=== PATIENT | male | born 1940 ===

== ENCOUNTER 2023-05-12 11:24 | Inpatient (IN) | payer MEDICARE, SELFPAY ==
[2023-05-12] VITALS (20 sets, daily range): BP systolic 125–177; BP diastolic 67–94; PULSE 69–87; RESP 13–19; TEMP 36.1–36.3; O2SAT 98–100; BMI 20.7
--- NOTE | ~2023-05-12 | CT_ITS ---
EXAMINATION: CT brain wo con DATE: 05/12/2023 12:23 INDICATION: Weakness. TECHNIQUE: Computed tomography (CT) of the head was performed without intravenous contrast. The mA wa s adjusted according to patient size. Iterative reconstruction technique was employed. The dose-lengt h product was 756.67 mGy-cm. COMPARISON: None FINDINGS: There is a hyperdense subdural hematoma in the right parafalcine region with maximum thickn ess of 14 mm. There is a hyperdense dural hematoma in left parafalcine region with maximum thickness of 8 mm. There is a hyperdense subdural hematoma around the right temporal occipital region. No midli ne shift. There is no acute ischemic infarct or abnormal mass lesion. There are scattered areas of lo w attenuation in the cerebral white matter. There is mass effect on right lateral ventricle. The vent ricles are not enlarged. There is mild mucosal thickening in the ethmoid sinuses. There are likely ch anges of ocular lens replacement surgeries. There are small bilateral mastoid effusions. IMPRESSION: 1. Bilateral acute subdural hematomas, right worse than left. I called this result to Dr. Valderrama. 2. Mild nonspecific cerebral white matter disease, which likely represents chronic small vessel ische estuardo disease. Reviewed, dictated and finalized at location E. IMPRESSION: 1. Bilateral acute subdural hematomas, right worse than left. I called this res ult to Dr. Valderrama. 2. Mild nonspecific cerebral white matter disease, which likely represents expediter service order ha small vessel ischemic disease.
--- NOTE | ~2023-05-12 | XR_ITS ---
EXAMINATION: XR chest 1V portable DATE: 05/13/2023 14:14 INDICATION: Hyponatremia TECHNIQUE: frontal view of the chest was obtained. COMPARISON: None FINDINGS: The lungs are clear with no focal airspace opacities, pulmonary edema, pleural effusion or pneumothor ax. The cardiomediastinal silhouette is normal. IMPRESSION: 1. No acute cardiopulmonary disease. Reviewed, dictated and finalized at location A.
--- NOTE | 2023-05-12 11:36 | ECG_ITS ---
Measurements Intervals [place] Rate: 66 P: ME: 0 QRS: 3 QRSD: 142 T: 3 QT: 463 QTc: 486 Interpretive Statements ATRIAL FIBRILLATION RIGHT BUNDLE BRANCH BLOCK BASELINE ARTIFACT- I, II, III, AVR, AVL, AVF, V1-V6 ABNORMAL ECG NO PREVIOUS ECG AVAILABLE FOR COMPARISON Electronically Signed On 05-12-2023 12:57:04 CDT by Houston Langston D.O.
[2023-05-12 11:49] LABS: Basophils Percent Auto 0.4 % (0.2-1.2); Eosinophils Absolute Auto 0.1 K/mm3 (0-0.3); Eosinophils Percent Auto 0.9 % (0-4.4); Hematocrit 35.7 % (42.0-52.0); Hemoglobin 12.6 g/dL (14.0-18.0); Lymphocytes Absolute Auto 0.86 K/mm3 (0.9-3.2); Lymphocytes Percent Auto 8.6 % (18.3-44.2); Mean Corpuscular HGB Conc 35.3 g/dl (32-36); Mean Corpuscular Hemoglobin 32.9 pg (26-34); Mean Corpuscular Volume 93.2 fl (80-100); Mean Platelet Volume 10.8 fl (7.4-10.4); Monocytes Absolute Auto 0.8 K/mm3 (0.1-0.6); Monocytes Percent Auto 8.4 % (2.6-8.5); Neutrophils Absolute Auto 8.1 K/mm3 (1.3-6.7); Neutrophils Percent Auto 80.7 % (45.5-73.1); Nucleated Red Blood Cells Perc 0.2 % (0.0-0.2); Platelet Count Result 145 k/mm3 (150-375); Red Blood Count 3.83 M/mm3 (4.6-6.20); Red Cell Distribution Width 14.5 % (11.5-14.5)
[2023-05-12 12:05] LABS: INR 1.1; Prothrombin Time 14.2 Seconds (11.1-14.7)
[2023-05-12 12:06] LABS: Partial Thromboplastin Time 33.4 Seconds (22.3-36.8)
[2023-05-12 12:07] LABS: Alanine Aminotransferase 17 U/L (6-50); Albumin Level 3.3 g/dL (3.5-5.1); Alkaline Phosphatase 72 U/L (38-126); Anion Gap 2 mmol/L (4-12); Appearance Urine Clear (Clear); Aspartate Amino Transferase 22 U/L (17-59); Bilirubin,Total 1.3 mg/dL (0.2-1.3); Blood Urea Nitrogen 13 mg/dL (9-20); Calcium 8.3 mg/dL (8.4-10.2); Carbon Dioxide 29 mmol/L (22-30); Chloride 89 mmol/L (98-107); Color Urine Yellow (Yellow); Estimated CRCL calculation 79 ml/min; Estimated Glomerular Filt Rate > 60; Glucose 182 mg/dL (65-110); Potassium 3.9 mmol/L (3.4-5.0); Sodium 120 mmol/L (137-145)
[2023-05-12 12:08] LABS: Add Urine Microscopic? YES; Bacteria Urine None Seen /hpf; Bilirubin Urine Negative (Negative); Blood Urine Trace-Lysed (Negative); Glucose Urine UA Trace mg/dL (Negative); Ketones Urine 1+ mg/dL (Negative); Nitrate Urine Negative (Negative); Non Pathogenic Casts 0-2; Protein Urine 1+ mg/dL (Negative); RBC Urine 0-2 /hpf (0-2); Squamous Epithelial Cell Urine None Seen /hpf (Few); WBC Urine 0-5 /hpf (0-3); pH Urine 6.5 (5.0-9.0)
[2023-05-12 12:09] LABS: Leukocyte Esterase Ur Negative LEU/UL (Negative); Urobilinogen Urine 0.2 mg/dL (<2.0)
[2023-05-12] MEDS: SODIUM CHLORIDE 0.9% IV 1,000 ML 999 ML IV CONT (13:37)
--- NOTE | 2023-05-12 14:04 | ED.AMS ---
HPI - Altered Mental Status General Chief Complaint: Altered Mental Status Stated Complaint: AMS Time Seen by Provider: 05/12/23 11:36 Source: patient and EMS Mode of arrival: EMS Limitations: altered mental status History of Present Illness HPI narrative: 82-year-old with a history of AFib on amiodarone recent subdural hematoma, hyperlipidemia was brought by EMS from [facility] for complaints of altered mental status, slow to respond since this morning. As per the larger patient was transferred from [facility] to [facility]. Patient's daughter states that he was transferred initially from [facility] to [facility] for subdural bleed a wk ago . No recent trauma. Denies any fever or chills. Daughter also reports that he has been having diarrhea since Thursday from the time of discharge from [facility] complaint: altered mental status Severity: moderate Associated symptoms: denies other symptoms Related Data Home Medications Medication Instructions Recorded Confirmed acetaminophen 500 mg tablet 1,000 mg PO Q6H PRN Pain rated 5 05/08/23 05/08/23 or less amiodarone 200 mg tablet 200 mg PO DAILY 05/08/23 05/08/23 diltiazem HCl 30 mg tablet 30 mg PO QID 05/08/23 05/08/23 famotidine 40 mg tablet 40 mg PO DAILY 05/08/23 05/08/23 latanoprost 0.005 % eye drops 1 drp EACH EYE HS 05/08/23 05/08/23 levetiracetam 500 mg tablet 2,000 mg PO BID 05/08/23 05/08/23 metformin 500 mg tablet 1,000 mg PO BIDWM 05/08/23 05/08/23 sennosides 8.6 mg-docusate sodium 2 tab-cap PO BID 05/08/23 05/08/23 50 mg tablet simvastatin 20 mg tablet 20 mg PO HS 05/08/23 05/08/23 Allergies Allergy/AdvReac Type Severity Reaction Status Date / Time azithromycin Allergy Swelling Verified 05/08/23 15:59 of Lip/Tongue/Throat hydrocodone AdvReac Hallucinati Verified 05/08/23 15:59 ng Review of Systems Review of Systems: ROS unobtainable: Yes unobtainable due to medical condition PMFSH Past Medical History Medical History Atrial fibrillation, chronic Chronic anticoagulation HTN (hypertension) Mixed hyperlipidemia Moderate aortic stenosis by prior echocardiogram Ocular hypertension, bilateral Type 2 diabetes mellitus Surgical History Surgical History Cataract extraction status, unspecified eye 2017 History of hernia repair abdominal hernia repair 1979 History of inguinal hernia repair 1993 S/P tympanostomy tube placement 1996 and 2008 Family History Family History Mother Leukemia Father Malignant neoplasm of prostate Kidney failure Sibling Hypertension Sibling Malignant neoplasm of prostate Social History Social History Smoking status: Never smoker Second hand tobacco smoke exposure: No Alcohol intake: never Substance use type: does not use Do You Feel Safe in your Home?: Yes Lack of Transportation: No Lack of Food: Never True Current Housing: I Have Housing Concerned About Future Housing: No Difficulty Paying Gas/Electric Bills: No Difficulty Paying for Meds: No Currently Unemployed: No Education: Associate Degree Difficulty w/ Childcare or Family Care: No Spiritual care concerns: No Exam Narrative: GENERAL: Well-appearing, well-nourished, and in no acute distress. HEAD: Normocephalic, atraumatic. EYES: PERRLA and EOMI. ENT: Nares clear, no rhinorrhea or epistaxis. Mucous membranes moist. NECK: Supple. CHEST: Clear to auscultation. No respiratory distress. HEART: Regular rate and rhythm. No murmur heard. Normal peripheral pulses. ABDOMEN: Soft, nontender, nondistended, normal active bowel sounds. EXTREMITIES: Normal range of motion. No edema. SKIN: Warm, dry, no rash. NEURO: No focal deficits. Alert and oriented x3 PSYCH: Normal mood and affect.
[2023-05-12] MEDS: SODIUM CHLORIDE 0.9% IV 1,000 ML 125 ML IV CONT (15:29)
[2023-05-12 15:41] LABS: Toxigenic C. Diff NEGATIVE (NEGATIVE)
--- NOTE | 2023-05-12 16:11 | PM.IMHP ---
H&P: HPI History of Present Illness Date/Time: 05/12/23 16:10 Chief Complaint: ?Slow to respond.? Narrative: This is an 82-year-old male with atrial fibrillation, hypertension, hyperlipidemia, type 2 diabetes mellitus, and recent subdural hematoma complicated by seizures and resultant left hemiparesis for which he is currently undergoing rehab who presented to the emergency department for evaluation as he has been ?slow to respond this morning.? He fell out of bed on April 26 and was found to have a 2.6 cm parafalcine subdural hematoma for which he was transferred to [place]. Initially no surgical intervention was recommended and his anticoagulation was reversed. He developed increasing left-sided weakness and was administered mannitol and then hypertonic saline. EEG was consistent with multiple electrographic seizures and he was started on levetiracetam. He was transferred out of the ICU a week later and was discharged to [facility] on 05/08/2023. He has been participating in therapy however today he seemed to be slower to respond and he was sent to the ED for evaluation. He was afebrile on arrival to the ED with stable vital signs. Labs were significant for WBC count of 10.0, hemoglobin 12.6, platelet 145, sodium 120, chloride 89, creatinine 0.70, glucose 182. Brain CT was read as having bilateral acute subdural hematomas right worse than left. ED physician spoke with Neurosurgery at [facility] who reviewed this CAT scan and they report that the subdural hematomas are in fact improved when compared to imaging taken at their facility last week. They had no further recommendations and recommended admission to [facility] for further treatment and evaluation. He was started on normal saline for the hyponatremia and he is being admitted in this setting. At the time my evaluation he is alert and oriented but he does seem a bit slow to answer questions however answers them appropriately. He has no complaints and denies headache, diplopia, vertigo, increasing left-sided weakness, chest pain, shortness of breath, fever, cough, nausea, vomiting, and dysuria. He has had some loose stools however. Review of Systems Review of Systems: Twelve systems were reviewed and are negative except for as per HPI. [facility] Past Medical History Medical History (Updated 05/12/23 @ 16:30 by Parisa Nieto PA-C) Chronic anticoagulation Chronic atrial fibrillation Hypertension Mixed hyperlipidemia Moderate aortic stenosis by prior echocardiogram Ocular hypertension, bilateral Seizures Traumatic subdural hematoma (04/27/23) Treated nonsurgically and complicated by seizures and left hemiparesis. Type 2 diabetes mellitus Surgical History Surgical History (Updated 05/12/23 @ 16:25 by Parisa Nieto PA-C) History of bilateral tympanoplasty History of cataract extraction (2016) History of hernia repair (1978) History of inguinal hernia repair (1993) Family History Family History Mother Leukemia Father Malignant neoplasm of prostate Kidney failure Sibling Hypertension Sibling Malignant neoplasm of prostate Social History Social History (Updated 05/12/23 @ 21:38 by Parisa Nieto PA-C) Social History: Surrogate medical decision maker: Elisa Ortiz, daughter. Code status: Full code. Smoking status: Never smoker Second hand tobacco smoke exposure: No Alcohol intake: never Substance use: never Substance use type: does not use Do You Feel Safe in your Home?: Yes Lack of Transportation: No Lack of Food: Never True Current Housing: I Have Housing Concerned About Future Housing: No Difficulty Paying Gas/Electric Bills: No Difficulty Paying for Meds: No Currently Unemployed: No Education: High School Diploma/GED Difficulty w/ Childcare or Family Care: No Living arrangements: alone Additional living arrangements comments: Lives alone and was independent
[2023-05-12 17:11] LABS: Anion Gap 6 mmol/L (4-12); Blood Urea Nitrogen 12 mg/dL (9-20); Calcium 8.8 mg/dL (8.4-10.2); Carbon Dioxide 26 mmol/L (22-30); Chloride 93 mmol/L (98-107); Estimated CRCL calculation 70 ml/min; Estimated Glomerular Filt Rate > 60; Glucose 163 mg/dL (65-110); Sodium 125 mmol/L (137-145)
[2023-05-12] MEDS: dilTIAZem HCL 60 MG TABLET PO ×2 (17:33→20:59)
[2023-05-12 17:51] LABS: Thyroid Stimulating Hormone Reflex 0.796 uIU/mL (0.465-4.68)
--- NOTE | 2023-05-12 17:58 | ADMIMU ---
This patient, Micahel Neff, was admitted to IMU status, and placed in IMU Room 205-01. Patient/family oriented to hospital policies and general routines including ID bracelet, bed and alarms, visiting hours, pain management, procedures, bathroom and other care routines, personal items, smoking policy, room service/diet, and visiting hours. Valuables list has been completed. Information on how to activate the Rapid Response Team has been discussed. Patient/Family are encouraged to report perceived risks to care and to ask questions if they do not understand what they are told or what they should do.
[2023-05-12 20:33] LABS: Glucose Point of Care 234 mg/dl (65-105)
[2023-05-12 20:40] LABS: Sodium 127 mmol/L (137-145)
[2023-05-12 20:44] LABS: Ammonia < 9 umol/L (9-30)
[2023-05-12] MEDS: levETIRAcetam 500 MG TABLET 2000 MG PO (20:59)
[2023-05-12] MEDS: SIMVASTATIN 10 MG TABLET PO (21:00)
[2023-05-12] MEDS: INSULIN ASPART (*BKC) 100 UNITS/ML SUB-Q (21:07)
[2023-05-12 23:37] LABS: Creatinine Urine 12.6 mg/dL; Urea Random Urine 130 MG/DL
[2023-05-12 23:46] LABS: Sodium Urine Random 14 meq/L
[2023-05-12 23:48] LABS: Amphetamine Screen Urine Negative (Negative); Barbiturate Screen Urine Negative (Negative); Benzodiazepines Screen Urine Negative (Negative); Cannabinoid Screen Urine Negative (Negative); Cocaine Screen Urine Negative (Negative); Methadone Screen Urine Negative (Negative); Opiate Screen Urine Negative (Negative); Phencyclidine Screen Urine Negative (Negative)
[2023-05-13] VITALS (13 sets, daily range): BP systolic 108–143; BP diastolic 61–74; PULSE 61–90; RESP 16–20; TEMP 36.4–36.8; O2SAT 97–100
[2023-05-13 01:44] LABS: Sodium 128 mmol/L (137-145)
[2023-05-13 05:02] LABS: Basophils Percent Auto 0.4 % (0.2-1.2); Eosinophils Absolute Auto 0.1 K/mm3 (0-0.3); Eosinophils Percent Auto 0.8 % (0-4.4); Hematocrit 37.9 % (42.0-52.0); Hemoglobin 13.2 g/dL (14.0-18.0); Immature Granulocyte Absolute 0.08 K/mm3 (0.00-0.031); Immature Granulocyte Percent A 0.8 % (0-0.5); Lymphocytes Absolute Auto 1.08 K/mm3 (0.9-3.2); Mean Corpuscular HGB Conc 34.8 g/dl (32-36); Mean Corpuscular Volume 94.8 fl (80-100); Mean Platelet Volume 11.2 fl (7.4-10.4); Monocytes Absolute Auto 0.8 K/mm3 (0.1-0.6); Monocytes Percent Auto 8.2 % (2.6-8.5); Neutrophils Absolute Auto 7.7 K/mm3 (1.3-6.7); Neutrophils Percent Auto 78.8 % (45.5-73.1); Platelet Count Result 149 k/mm3 (150-375); Red Cell Distribution Width 14.6 % (11.5-14.5); White Blood Count 9.8 K/mm3 (4.5-10.0)
[2023-05-13 05:09] LABS: Anion Gap 7 mmol/L (4-12); Blood Urea Nitrogen 12 mg/dL (9-20); Calcium 8.7 mg/dL (8.4-10.2); Carbon Dioxide 25 mmol/L (22-30); Chloride 96 mmol/L (98-107); Estimated CRCL calculation 71 ml/min; Estimated Glomerular Filt Rate > 60; Glucose 179 mg/dL (65-110); Magnesium 2.1 mg/dL (1.6-2.3); Potassium 3.8 mmol/L (3.4-5.0); Sodium 128 mmol/L (137-145)
[2023-05-13 07:40] LABS: Glucose Point of Care 204 mg/dl (65-105)
[2023-05-13 08:12] LABS: Sodium 126 mmol/L (137-145)
[2023-05-13] MEDS: INSULIN ASPART (*BKC) 100 UNITS/ML SUB-Q ×3 (09:10→21:38)
[2023-05-13] MEDS: dilTIAZem HCL 60 MG TABLET PO ×4 (09:11→21:37)
[2023-05-13] MEDS: levETIRAcetam 500 MG TABLET 2000 MG PO ×2 (09:11→21:37)
[2023-05-13] MEDS: AMIODARONE HCL 200 MG TABLET PO (09:11)
[2023-05-13] MEDS: FAMOTIDINE 20 MG TABLET 40 MG PO (09:11)
[2023-05-13] MEDS: lisinopriL 5 MG TABLET PO (09:11)
--- NOTE | 2023-05-13 09:55 | P.PNIM_ITS ---
Progress Note: A&P Assessment and Plan (1) Hyponatremia: Code(s): E87.1 - Hypo-osmolality and hyponatremia Status: Acute Assessment and Plan: 05/13/2023: * Patient had a recent fall on April 26 and was found to have a 2.6 cm subdural hematoma which he was transferred to [place]. Initially there was no surgical intervention indicated in his anticoagulation was reversed. He developed increased left-sided weakness and was administered mannitol and hypertonic saline due to low sodium level. 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 * Patient has history of recent fall on April 26 and was found to have a 2.6 cm subdural hematoma which he was transferred to [place]. No surgical intervention was indicated at that time and his anticoagulation was reversed. He developed left-sided weakness it was and was administered mannitol and hypertonic saline. He also had an EEG which was consistent with seizure was started on Keppra. * CT of the brain without contrast this admission showed bilateral acute subdural hematoma, right worse than, age-related changes. These results were compared to his initial resulted [place] with the neurosurgery team at [facility] and the neurosurgery team states this can today shows improvement the previous scan. They did not warrant any further workup at this time. * Neurology consulted precautionary * Continue PT and OT * Continue neuro checks q.4 hour (3) Seizures: Code(s): R56.9 - Unspecified convulsions Status: Acute Assessment and Plan: 05/13/2023: * Continue Keppra * Continue seizure precautions * Neurology consulted (4) Chronic atrial fibrillation: Code(s): I48.20 - Chronic atrial fibrillation, unspecified Status: Acute Assessment and Plan: 05/13/2023: * Continue amiodarone and Cardizem * Not on anticoagulation currently (5) Type 2 diabetes mellitus: Qualifiers: Diabetes mellitus complication detail: with cataract Diabetes mellitus complication status: with ophthalmic complications Diabetes mellitus correction insulin use: without buttermaker continuous churn use Qualified Code(s): E11.36 - Type 2 diabetes mellitus with diabetic cataract Code(s): E11.9 - Type 2 diabetes mellitus without complications Status: Acute Assessment and Plan: 05/13/2023: * Blood sugars ranging 179-204 * Accu-Cheks AC and HS * Low-dose sliding scale ordered * Hypoglycemic in place * Metformin on hold * Will get hemoglobin A1c (6) Hypertension: Code(s): I10 - Essential (primary) hypertension Status: Acute Assessment and Plan: 05/13/2023: * Blood pressure ranging 125/67-177/94 * Continue lisinopril (7) Mixed hyperlipidemia: Code(s): E78.2 - Mixed hyperlipidemia Status: Acute Assessment and Plan: 05/13/2023: * Continue simvastatin Time Spent With Patient Time with patient: Greater than 35 minutes Subjective Date/time seen: 05/13/23 09:55 Int
--- NOTE | 2023-05-13 09:55 | PM.IMPN ---
Progress Note: A&P Assessment and Plan (1) Hyponatremia: Code(s): E87.1 - Hypo-osmolality and hyponatremia Status: Acute Assessment and Plan: 05/13/2023: Patient had a recent fall on April 26 and was found to have a 2.6 cm subdural hematoma which he was transferred to [place]. Initially there was no surgical intervention indicated in his anticoagulation was reversed. He developed increased left-sided weakness and was administered mannitol and hypertonic saline due to low sodium level. 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 Patient has history of recent fall on April 26 and was found to have a 2.6 cm subdural hematoma which he was transferred to [place]. No surgical intervention was indicated at that time and his anticoagulation was reversed. He developed left-sided weakness it was and was administered mannitol and hypertonic saline. He also had an EEG which was consistent with seizure was started on Keppra. CT of the brain without contrast this admission showed bilateral acute subdural hematoma, right worse than, age-related changes. These results were compared to his initial resulted [place] with the neurosurgery team at [facility] and the neurosurgery team states this can today shows improvement the previous scan. They did not warrant any further workup at this time. Neurology consulted precautionary Continue PT and OT Continue neuro checks q.4 hour (3) Seizures: Code(s): R56.9 - Unspecified convulsions Status: Acute Assessment and Plan: 05/13/2023: Continue Keppra Continue seizure precautions Neurology consulted (4) Chronic atrial fibrillation: Code(s): I48.20 - Chronic atrial fibrillation, unspecified Status: Acute Assessment and Plan: 05/13/2023: Continue amiodarone and Cardizem Not on anticoagulation currently (5) Type 2 diabetes mellitus: Qualifiers: Diabetes mellitus complication detail: with cataract Diabetes mellitus complication status: with ophthalmic complications Diabetes mellitus chcf insulin use: without ocean transportation intermediary use Qualified Code(s): E11.36 - Type 2 diabetes mellitus with diabetic cataract Code(s): E11.9 - Type 2 diabetes mellitus without complications Status: Acute Assessment and Plan: 05/13/2023: Blood sugars ranging 179-204 Accu-Cheks AC and HS Low-dose sliding scale ordered Hypoglycemic in place Metformin on hold Will get hemoglobin A1c (6) Hypertension: Code(s): I10 - Essential (primary) hypertension Status: Acute Assessment and Plan: 05/13/2023: Blood pressure ranging 125/67-177/94 Continue lisinopril (7) Mixed hyperlipidemia: Code(s): E78.2 - Mixed hyperlipidemia Status: Acute Assessment and Plan: 05/13/2023: Continue simvastatin Time Spent With Patient Time with patient: Greater than 35 minutes Subjective Date/time seen: 05/13/23 09:55 Interval history: This is an 82-year-old male who presented to hospital on 05/12/2023 evaluation as he has been slow to respond . Workup in the hospital included a head CT which showed bilateral acute subdural hematomas, right worse than left, age-related changes. Initial labs reveal a hemoglobin of 12.6, platelet count of 145, sodium 120, chloride 89, glucose ranging 182-198, calcium 8.3, liver enzymes are normal, albumin 3.3. UA was obtained w
[2023-05-13 11:38] LABS: Glucose Point of Care 227 mg/dl (65-105)
[2023-05-13 12:06] LABS: Sodium 128 mmol/L (137-145)
--- NOTE | 2023-05-13 12:20 | P.CONNP_ITS ---
Assessment and Plan Assessment and plan (1) Hyponatremia: Code(s): E87.1 - Hypo-osmolality and hyponatremia Status: Acute Assessment and Plan: * thought to be seconday to head trauma/subdural hematomas * reported treated with manniton and 3% saline at [facility] (unclear how low sodium dropped before this intervention) * evaluation to date noted: * repeat brain CT with subdural hematomas * urine electrolytes are prerenal * TSH okay * serum/urine osmolality pending * for completeness, check CXR, random cortisol, and SPEP/UPEP * agree with fluid restriction * consider salt tabs and lasix if sodium worsens * follow trend of repeat sodium levels (2) Chronic subdural hematoma: Code(s): I62.03 - Nontraumatic chronic subdural hemorrhage Status: Acute Assessment and Plan: * CT of the brain done in comparison to recent imaging at [facility] shows improvement in SDHs * follow neurological status closely * Neurology following as well (3) Seizures: Code(s): R56.9 - Unspecified convulsions Status: Acute Assessment and Plan: * as noted by testing at [facility] * on Keppra * Neurology following (4) Hypertension: Code(s): I10 - Essential (primary) hypertension Status: Chronic Assessment and Plan: * reasonable control at this time * follow trend of hemodynamics (5) Type 2 diabetes mellitus with hyperglycemia: Code(s): E11.65 - Type 2 diabetes mellitus with hyperglycemia Status: Chronic Assessment and Plan: * follow acc-cheks * glycemic control per hospitalists I will continue follow the patient with you while he remains hospitalized and make further recommendations as deemed necessary. Thank you for allowing me to participate in the care this patient. History of Present Illness Reason for Consult Consult date: 05/13/23 Reason for consult: hyponatremia Chief Complaint Chief complaint: hyponatremia,chronic subdural hematoma History of Present Illness Narrative: The patient is an 82-year-old male with a past medical history as outlined below who presented to [facility] Emergency room from [facility] for further evaluation of poor responsiveness. Earlier this month, the patient fell out of bed and subsequent testing at that time demonstrated 2.6 cm parafalcine subdural hematoma for which she was subsequently transferred to [facility] for further evaluation of this issue. He was seen by neuro surgery during his hospital stay and it was felt that no surgical intervention was required and it was just recommended that his anticoagulation be reversed. Unfortunately, during his hospital stay, he developed increasing left-sided weakness presumably due to concerns of progression of his subdural hematoma and he received mannitol as well as hypertonic saline as a treatment for this. EEG at that time was consistent with multiple electrocardiographic seizures and he was started on anti aldactone occasion for this issue. PT OT was consulted and as his medical condition stabilized, it was felt that he would benefit from inpatient rehabilitation. He was subsequently transferred to [facility] for this purpose on 05/08/2023. While he was at a NH, he was continuing to participate in PT and OT but on the day of admission, he seemed to be somewhat slower to respond to nursing staff and therapist and this was felt to be an acute change in his overall clinical condition. He was subsequently transferred to [facility] Emergency room for further ass
--- NOTE | 2023-05-13 12:20 | PM.CNNEP ---
Assessment and Plan Assessment and plan (1) Hyponatremia: Code(s): E87.1 - Hypo-osmolality and hyponatremia Status: Acute Assessment and Plan: thought to be seconday to head trauma/subdural hematomas reported treated with manniton and 3% saline at [facility] (unclear how low sodium dropped before this intervention) evaluation to date noted: repeat brain CT with subdural hematomas urine electrolytes are prerenal TSH okay serum/urine osmolality pending for completeness, check CXR, random cortisol, and SPEP/UPEP agree with fluid restriction consider salt tabs and lasix if sodium worsens follow trend of repeat sodium levels (2) Chronic subdural hematoma: Code(s): I62.03 - Nontraumatic chronic subdural hemorrhage Status: Acute Assessment and Plan: CT of the brain done in comparison to recent imaging at [facility] shows improvement in SDHs follow neurological status closely Neurology following as well (3) Seizures: Code(s): R56.9 - Unspecified convulsions Status: Acute Assessment and Plan: as noted by testing at [facility] on [facility] Neurology following (4) Hypertension: Code(s): I10 - Essential (primary) hypertension Status: Chronic Assessment and Plan: reasonable control at this time follow trend of hemodynamics (5) Type 2 diabetes mellitus with hyperglycemia: Code(s): E11.65 - Type 2 diabetes mellitus with hyperglycemia Status: Chronic Assessment and Plan: follow acc-cheks glycemic control per hospitalists I will continue follow the patient with you while he remains hospitalized and make further recommendations as deemed necessary. Thank you for allowing me to participate in the care this patient. History of Present Illness Reason for Consult Consult date: 05/13/23 Reason for consult: hyponatremia Chief Complaint Chief complaint: hyponatremia,chronic subdural hematoma History of Present Illness Narrative: The patient is an 82-year-old male with a past medical history as outlined below who presented to [facility] room from [facility] for further evaluation of poor responsiveness. Earlier this month, the patient fell out of bed and subsequent testing at that time demonstrated 2.6 cm parafalcine subdural hematoma for which she was subsequently transferred to [facility] for further evaluation of this issue. He was seen by neuro surgery during his hospital stay and it was felt that no surgical intervention was required and it was just recommended that his anticoagulation be reversed. Unfortunately, during his hospital stay, he developed increasing left-sided weakness presumably due to concerns of progression of his subdural hematoma and he received mannitol as well as hypertonic saline as a treatment for this. EEG at that time was consistent with multiple electrocardiographic seizures and he was started on anti aldactone occasion for this issue. PT OT was consulted and as his medical condition stabilized, it was felt that he would benefit from inpatient rehabilitation. He was subsequently transferred to [facility] for this purpose on 05/08/2023. While he was at a OR, he was continuing to participate in PT and OT but on the day of admission, he seemed to be somewhat slower to respond to nursing staff and therapist and this was felt to be an acute change in his overall clinical condition. He was subsequently transferred to [facility] Emergency room for further assessment of this change. Workup and evaluation in the emergency room demonstrated the patient be hemodynamically stable and routine blood tests was only significant for significant hyponatremia with a sodium level [address] scan of the brain demonstrated bilateral acute subdural hematomas with the right greater than left but the emergency room physician did consult Neurosurge
--- NOTE | 2023-05-13 12:20 | WPDNEURCNPN ---
Assessment and Plan Assessment and plan (1) Chronic atrial fibrillation: Code(s): I48.20 - Chronic atrial fibrillation, unspecified Status: Acute (2) Seizures: Code(s): R56.9 - Unspecified convulsions Status: Acute (3) Hyponatremia: Code(s): E87.1 - Hypo-osmolality and hyponatremia Status: Acute (4) Hypertension: Code(s): I10 - Essential (primary) hypertension Status: Acute (5) Altered mental status: Qualifiers: Altered mental status type: unspecified Qualified Code(s): R41.82 - Altered mental status, unspecified Code(s): R41.82 - Altered mental status, unspecified Status: Acute (6) Chronic subdural hematoma: Code(s): I62.03 - Nontraumatic chronic subdural hemorrhage Status: Acute (7) Type 2 diabetes mellitus with hyperglycemia: Code(s): E11.65 - Type 2 diabetes mellitus with hyperglycemia Status: Acute (8) Moderate aortic stenosis by prior echocardiogram: Code(s): I35.0 - Nonrheumatic aortic (valve) stenosis Status: Acute Plan 1. Atrial fibrillation 2. Hypertension 3. Diabetes mellitus 4. Recent diagnosis of subdural hematoma 5. Resultant left hemiparesis and seizure disorder 6. Neurosurgical consultation already obtained and no neurosurgical intervention planned 7. During therapy noted to have increasing weakness and transferred to [facility] and the CT scan read and telephone consultation obtained with Neurosurgery at [facility] will review the previous and present scans and suggested no worsening. Patient needs to be continued on physical therapy probably at this stage passive therapy will be more beneficial till his subdural hematomas settled down. Patient is receiving levetiracetam 2000mg twice a day in addition to all his other medications but no anticoagulant. 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 where he was transferred initially from [facility] for subdural bleed about a week ago with no history of recent trauma or any general febrile condition though he had some diarrhea from the time of discharge from [facility] his medications include amiodarone 200mg daily diltiazem 30mg q.i.d. famotidine 40mg daily levo trace a tamp 500mg each 4 tablets twice a day metformin 1000mg twice a day and simvastatin 20mg at night, reportedly allergic to azithromycin and hydrocodone, does have ongoing history of atrial fibrillation on chronic anticoagulation therapy in addition to history of underlying hypertension, hyperlipidemia, and aortic stenosis by echocardiogram previously, type 2 diabetes mellitus, and ocular hypertension as well has undergone cataract extraction in addition to tympanostomy tube placement in and 2008, never smoker never alcohol intake or and on initial examination in the emergency room he was in no acute distress and grossly nonfocal neurological examination with normal vital signs except blood pressure 149/94 repeat 160/91, CBC was normal with platelet count down that is 145 BMP abnormal sodium 120 and glucose of 182 routine lab negative, initial CT scan of the head documented bilateral acute subdural hematomas right worse than left, EKG with atrial fibrillation, continued all the most important medications, as per Dr. Raines rings note, on initial transfer to [facility] the subdural hematoma was documented as para falcine 2.6cm but no surgical intervention was recommended and his anticoagulation was reversed subsequently developed increasing left-sided weakness and he required mannitol and hypertonic saline at that time is EEG was consistent with multiple electrographic seizures when he was started on levetirac
[2023-05-13 15:57] LABS: Glucose Point of Care 173 mg/dl (65-105)
[2023-05-13 16:32] LABS: Sodium 127 mmol/L (137-145)
[2023-05-13 21:22] LABS: Glucose Point of Care 209 mg/dl (65-105)
[2023-05-13] MEDS: LATANOPROST 0.005% OP SOLN 2.5 ML BTL 1 DROP EACH EYE ×2 (21:35→21:50)
[2023-05-13] MEDS: SIMVASTATIN 10 MG TABLET PO (21:37)
--- NOTE | 2023-05-13 21:57 | PC.NURSE ---
RECIEVED PT FROM IMU PER BED
[2023-05-14 06:10] VITALS: BP 131/58; PULSE 73; RESP 16; TEMP 36.6; O2SAT 96
--- NOTE | 2023-05-14 07:24 | P.PNIM_ITS ---
Progress Note: A&P Assessment and Plan (1) Subdural hematoma without coma: Qualifiers: Encounter type: initial encounter Loss of consciousness presence/duration: without LOC Qualified Code(s): S06.5X0A - Traumatic subdural hemorrhage without loss of consciousness, initial encounter Code(s): S06.5XAA - Traumatic subdural hemorrhage with loss of consciousness status u nknown, initial encounter Status: Acute (2) Hyponatremia: Code(s): E87.1 - Hypo-osmolality and hyponatremia Status: Acute (3) Seizure: Code(s): R56.9 - Unspecified convulsions Status: Acute (4) Chronic atrial fibrillation: Code(s): I48.20 - Chronic atrial fibrillation, unspecified Status: Acute (5) Type 2 diabetes mellitus with hyperglycemia: Code(s): E11.65 - Type 2 diabetes mellitus with hyperglycemia Status: Chronic (6) HTN (hypertension): Qualifiers: Hypertension type: unspecified Qualified Code(s): I10 - Essential (primary) hypertension Code(s): I10 - Essential (primary) hypertension Status: Acute (7) Mixed hyperlipidemia: Code(s): E78.2 - Mixed hyperlipidemia Status: Acute Plan (1) Hyponatremia: ?Code(s): E87.1 - Hypo-osmolality and hyponatremia ?Status:?Acute ?Assessment and Plan: 05/13/2023: * Patient had a recent fall on April 26 and was found to have a 2.6 cm subdural hematoma which he was transferred to [facility].? Initially there was no surgical intervention indicated in his anticoagulation was reversed.? He developed increased left-sided weakness and was administered mannitol and hypertonic saline due to low sodium level. 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 p.o. (2) Chronic subdural hematoma: ?Code(s): I62.03 - Nontraumatic chronic subdural hemorrhage ?Status:?Acute ?Assessment and Plan: 05/13/2023: * Patient was noted to be slow to respond to questions in tasks at [facility]. * Patient has history of recent fall on April 26 and was found to have a 2.6 cm subdural hematoma which he was transferred to [facility].? No surgical intervention was indicated at that time and his anticoagulation was reversed.? He developed left-sided weakness it was and was administered mannitol and hypertonic saline.? He also had an EEG which was consistent with seizure was started on Keppra. * CT of the brain without contrast this admission showed bilateral acute subdural hematoma, right worse than, age-related changes.? These results were compared to his initial resulted [facility] with the neurosurgery team at [facility] and the neurosurgery team states this can today shows improvement the previous scan.? They did not warrant any further workup at this time. * Neurology consulted precautionary * Continue PT and OT * Continue neuro checks q.4 hour No new focal deficit * (3) Seizures: ?Code(s): R56.9 - Unspecified convulsions ?Status:?Acute ?Assessment and Plan: 05/13/2023: * Continue Keppra * Continue seizure precautions * Neurology consulted (4) Chronic atrial fibrillation: ?C
--- NOTE | 2023-05-14 07:24 | PM.IMPN ---
Progress Note: A&P Assessment and Plan (1) Subdural hematoma without coma: Qualifiers: Encounter type: initial encounter Loss of consciousness presence/duration: without LOC Qualified Code(s): S06.5X0A - Traumatic subdural hemorrhage without loss of consciousness, initial encounter Code(s): S06.5XAA - Traumatic subdural hemorrhage with loss of consciousness status unknown, initial encounter Status: Acute (2) Hyponatremia: Code(s): E87.1 - Hypo-osmolality and hyponatremia Status: Acute (3) Seizure: Code(s): R56.9 - Unspecified convulsions Status: Acute (4) Chronic atrial fibrillation: Code(s): I48.20 - Chronic atrial fibrillation, unspecified Status: Acute (5) Type 2 diabetes mellitus with hyperglycemia: Code(s): E11.65 - Type 2 diabetes mellitus with hyperglycemia Status: Chronic (6) HTN (hypertension): Qualifiers: Hypertension type: unspecified Qualified Code(s): I10 - Essential (primary) hypertension Code(s): I10 - Essential (primary) hypertension Status: Acute (7) Mixed hyperlipidemia: Code(s): E78.2 - Mixed hyperlipidemia Status: Acute Plan (1) Hyponatremia: ?Code(s): E87.1 - Hypo-osmolality and hyponatremia ?Status:?Acute ?Assessment and Plan: 05/13/2023: Patient had a recent fall on April 26 and was found to have a 2.6 cm subdural hematoma which he was transferred to [place].? Initially there was no surgical intervention indicated in his anticoagulation was reversed.? He developed increased left-sided weakness and was administered mannitol and hypertonic saline due to low sodium level. 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 p.o. (2) Chronic subdural hematoma: ?Code(s): I62.03 - Nontraumatic chronic subdural hemorrhage ?Status:?Acute ?Assessment and Plan: 05/13/2023: Patient was noted to be slow to respond to questions in tasks at [facility]. Patient has history of recent fall on April 26 and was found to have a 2.6 cm subdural hematoma which he was transferred to [place].? No surgical intervention was indicated at that time and his anticoagulation was reversed.? He developed left-sided weakness it was and was administered mannitol and hypertonic saline.? He also had an EEG which was consistent with seizure was started on Keppra. CT of the brain without contrast this admission showed bilateral acute subdural hematoma, right worse than, age-related changes.? These results were compared to his initial resulted [place] with the neurosurgery team at [facility] and the neurosurgery team states this can today shows improvement the previous scan.? They did not warrant any further workup at this time. Neurology consulted precautionary Continue PT and OT Continue neuro checks q.4 hour No new focal deficit (3) Seizures: ?Code(s): R56.9 - Unspecified convulsions ?Status:?Acute ?Assessment and Plan: 05/13/2023: Continue Keppra Continue seizure precautions Neurology consulted (4) Chronic atrial fibrillation: ?Code(s): I48.20 - Chronic atrial fibrillation, unspecified ?Status:?Acute ?Assessment and Plan: 05/13/2023: Continue amiodarone and Cardizem Not on anticoagulation currently (5) Type 2 diabetes mellitus: ?Qualifiers: ?Diabetes mellitus complication detail:?with cataract??Diabetes mellitus complication status:?with ophthalmic complications??Diabetes mellitus fci insulin use:?without long term acute care registered nurse use? Qualified Code(s):?E11.36 - Ty
[2023-05-14 07:54] LABS: Anion Gap 3 mmol/L (4-12); Blood Urea Nitrogen 12 mg/dL (9-20); Calcium 8.7 mg/dL (8.4-10.2); Carbon Dioxide 29 mmol/L (22-30); Chloride 96 mmol/L (98-107); Estimated CRCL calculation 61 ml/min; Estimated Glomerular Filt Rate > 60; Glucose 197 mg/dL (65-110); Potassium 3.8 mmol/L (3.4-5.0); Sodium 128 mmol/L (137-145)
[2023-05-14 08:02] LABS: Glucose Point of Care 213 mg/dl (65-105)
[2023-05-14] MEDS: dilTIAZem HCL 60 MG TABLET PO ×4 (08:44→20:12)
[2023-05-14] MEDS: FAMOTIDINE 20 MG TABLET 40 MG PO (08:44)
[2023-05-14 08:45] VITALS: PULSE 68
[2023-05-14] MEDS: AMIODARONE HCL 200 MG TABLET PO (08:45)
[2023-05-14] MEDS: levETIRAcetam 500 MG TABLET 2000 MG PO ×2 (08:46→20:12)
[2023-05-14] MEDS: lisinopriL 5 MG TABLET PO (08:46)
--- NOTE | 2023-05-14 09:35 | WPDNEUROPN ---
Progress Note: A&P Assessment and Plan (1) Altered mental status: Qualifiers: Altered mental status type: unspecified Qualified Code(s): R41.82 - Altered mental status, unspecified Code(s): R41.82 - Altered mental status, unspecified Status: Acute (2) Hyponatremia: Code(s): E87.1 - Hypo-osmolality and hyponatremia Status: Acute (3) Chronic subdural hematoma: Code(s): I62.03 - Nontraumatic chronic subdural hemorrhage Status: Acute (4) Atrial fibrillation, chronic: Code(s): I48.20 - Chronic atrial fibrillation, unspecified Status: Acute (5) Seizure: Code(s): R56.9 - Unspecified convulsions Status: Acute (6) Left leg weakness: Code(s): R29.898 - Other symptoms and signs involving the musculoskeletal system Status: Acute Plan Mr. Neff is an year old male with a history of atrial fibrillation, HTN, HLD, DM, and recent SDH complicated by seizure and L hemiparesis currently admitted for altered mental status. He was ultimately found to have hyponatremia of 120, which may have been the cause of his altered mental status. Most recent sodium is 128. CTH per Neurosurgery at [facility] appears to be improved from the prior scans at [facility] for SDH. He has not had any breakthrough seizures since that admission from what I can see. Timing of resumption of anticoagulation for atrial fibrillation will have to be discussed with Neurosurgery. 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 Subjective Date/time seen: 05/14/23 09:35 Interval history: Mr. Neff is an year old male with a history of atrial fibrillation, HTN, HLD, DM, and recent SDH complicated by seizure and L hemiparesis currently admitted for altered mental status. Patient initially presented on 04/26 after he fell out of bed and was ultimately found to have a parafalcine subdural hematoma, for which he was transferred to [facility]. He was taking daily warfarin so his anticoagulation was reversed and he received manniton and hypertonic saline. He had L sided weakness and seizure. He was put on Keppra -- taking 2000mg BID. He was admitted for about a week and then discharged to [facility]. While at rehab, on day of presentation, patient was slower to respond, so he was sent to the ER for further evaluation. His labs were significant for a sodium of 120. Repeat CT head was done, and the results discussed with Neurosurgery at [facility], who felt that the CT scan actually appeared improved from the initial admission at [facility]. HE was started on normal saline for hyponatremia and subsequently admitted. From chart review, it does not seem that patient has had any breakthrough seizures since being transferred here from rehab. Sodium level today is 128. Per family, patient is close to his baseline mental status. His weakness on the left side is pretty much unchanged. Review of Systems Review of Systems: All systems reviewed & are unremarkable except as noted in HPI and below Exam Const: General: comfortable and no acute distress HENMT: Mouth: Yes moist mucous membranes Eyes: Pupils: Equal, round and reactive pupils present EOM: EOMs intact bilaterally Resp: Effort & Inspection: normal respiratory effort Skin: General skin exam: normal color Neuro: Other: Pupils equal and reactive bilaterally, EOMI, face symmetric, facial sensation intact, tongue protrudes midline. Strength 4+/5 LUE, 2/5 LLE, 5/5 RUE, 5/5 RLE. Sensation intact throughout. FNF normal bilaterally. Language comprehension and fluency intact. Gait deferred. Extrem: General: normal to inspection Psych: Mental Status: mental status grossly normal Affect: normal affect Objective Data Vital Signs Vital Signs: Vital Signs - 24 hr 05/13/23 10:00 05/13/23 12:00 05/13/23 12:00 Temperature 36.6 C Pulse Rate 76 80 90 Respiratory Rate 20 Blood Pressure 108/64 Pulse
[2023-05-14] MEDS: INSULIN ASPART (*BKC) 100 UNITS/ML SUB-Q ×4 (09:57→20:18)
--- NOTE | 2023-05-14 11:51 | P.PNNP_ITS ---
Progress Note: A&P Assessment and Plan (1) Hyponatremia: Code(s): E87.1 - Hypo-osmolality and hyponatremia Status: Acute Assessment and Plan: * thought to be seconday to head trauma/subdural hematomas * reported treated with manniton and 3% saline at [facility] (unclear how low sodium dropped before this intervention) * evaluation to date noted: * repeat brain CT on 05/11 shows bilateral subdural hematomas * urine electrolytes are prerenal * TSH okay * Cortisol 12.4. Will check a Cortrosyn stim * SPEP is pending * serum/urine osmolality pending * agree with fluid restriction. Will continue this. * Sodium level has improved a little to 128. (2) Chronic subdural hematoma: Code(s): I62.03 - Nontraumatic chronic subdural hemorrhage Status: Acute Assessment and Plan: * CT of the brain done in comparison to recent imaging at [facility] shows improvement in SDHs * follow neurological status closely * Neurology following as well (3) Seizures: Code(s): R56.9 - Unspecified convulsions Status: Acute Assessment and Plan: * as noted by testing at [facility] * on Keppra * Neurology following (4) Hypertension: Code(s): I10 - Essential (primary) hypertension Status: Chronic Assessment and Plan: * Systolic ranging from 1 await to 143 in the last 24hours * follow trend of hemodynamics (5) Type 2 diabetes mellitus with hyperglycemia: Code(s): E11.65 - Type 2 diabetes mellitus with hyperglycemia Status: Chronic Assessment and Plan: * follow acc-cheks * glycemic control per hospitalists Subjective Date/time seen: 05/14/23 11:51 Interval history: Patient is alert. He is sitting up in a chair. Family in the room. No chest pain or shortness of breath Review of Systems Cardiovascular: Cardiovascular: Reports no additional cardiovascular complaints Respiratory: Respiratory: Reports no additional respiratory complaints Gastrointestinal: Gastrointestinal: Reports no additional gastrointestinal complaints Genitourinary: Genitourinary: Reports no additional male genitourinary complaints Exam Narrative: WDWN in NAD skin no rash head ncat lungs clear cor reg no rub abd BS+ nontender and soft ext no edema. Objective Data Vital Signs Vital Signs: Vital Signs - 24 hr 05/13/23 12:00 05/13/23 12:00 05/13/23 14:00 Temperature 97.9 F Pulse Rate 80 90 73 Respiratory Rate 20 Blood Pressure 108/64 Pulse Oximetry 97 Oxygen Delivery 05/13/23 16:00 05/13/23 16:00 05/13/23 21:23 Temperature 97.7 F 97.8 F Pulse Rate 79 73 61 Respiratory Rate 16 16 Blood Pressure 125/64 123/61 Pulse Oximetry 100 99 Oxygen Delivery 05/14/23 06:10 05/14/23 08:45 05/14/23 08:00 Temperature 97.9 F Pulse Rate 73 68 Respiratory Rate 16 Blood Pressure 131/58 L Pulse Oximetry 96 Oxygen Delivery Room Air 05/14/23 10:19 Temperature Pulse Rate Respiratory Rate Blood Pressure Pulse Oximetry Oxygen Delivery Room Air Intake/Output Intake/O
--- NOTE | 2023-05-14 11:51 | PM.PNNEP ---
Progress Note: A&P Assessment and Plan (1) Hyponatremia: Code(s): E87.1 - Hypo-osmolality and hyponatremia Status: Acute Assessment and Plan: thought to be seconday to head trauma/subdural hematomas reported treated with manniton and 3% saline at [facility] (unclear how low sodium dropped before this intervention) evaluation to date noted: repeat brain CT on 05/11 shows bilateral subdural hematomas urine electrolytes are prerenal TSH okay Cortisol 12.4. Will check a Cortrosyn stim SPEP is pending serum/urine osmolality pending agree with fluid restriction. Will continue this. Sodium level has improved a little to 128. (2) Chronic subdural hematoma: Code(s): I62.03 - Nontraumatic chronic subdural hemorrhage Status: Acute Assessment and Plan: CT of the brain done in comparison to recent imaging at [facility] shows improvement in SDHs follow neurological status closely Neurology following as well (3) Seizures: Code(s): R56.9 - Unspecified convulsions Status: Acute Assessment and Plan: as noted by testing at [facility] on [facility] Neurology following (4) Hypertension: Code(s): I10 - Essential (primary) hypertension Status: Chronic Assessment and Plan: Systolic ranging from 1 await to 143 in the last 24hours follow trend of hemodynamics (5) Type 2 diabetes mellitus with hyperglycemia: Code(s): E11.65 - Type 2 diabetes mellitus with hyperglycemia Status: Chronic Assessment and Plan: follow acc-cheks glycemic control per hospitalists Subjective Date/time seen: 05/14/23 11:51 Interval history: Patient is alert. He is sitting up in a chair. Family in the room. No chest pain or shortness of breath Review of Systems Cardiovascular: Cardiovascular: Reports no additional cardiovascular complaints Respiratory: Respiratory: Reports no additional respiratory complaints Gastrointestinal: Gastrointestinal: Reports no additional gastrointestinal complaints Genitourinary: Genitourinary: Reports no additional male genitourinary complaints Exam Narrative: WDWN in NAD skin no rash head ncat lungs clear cor reg no rub abd BS+ nontender and soft ext no edema. Objective Data Vital Signs Vital Signs: Vital Signs - 24 hr 05/13/23 12:00 05/13/23 12:00 05/13/23 14:00 Temperature 97.9 F Pulse Rate 80 90 73 Respiratory Rate 20 Blood Pressure 108/64 Pulse Oximetry 97 Oxygen Delivery 05/13/23 16:00 05/13/23 16:00 05/13/23 21:23 Temperature 97.7 F 97.8 F Pulse Rate 79 73 61 Respiratory Rate 16 16 Blood Pressure 125/64 123/61 Pulse Oximetry 100 99 Oxygen Delivery 05/14/23 06:10 05/14/23 08:45 05/14/23 08:00 Temperature 97.9 F Pulse Rate 73 68 Respiratory Rate 16 Blood Pressure 131/58 L Pulse Oximetry 96 Oxygen Delivery Room Air 05/14/23 10:19 Temperature Pulse Rate Respiratory Rate Blood Pressure Pulse Oximetry Oxygen Delivery Room Air Intake/Output Intake/Output: Intake & Output 05/11/23 05/12/23 05/13/23 05/14/23 23:59 23:59 23:59 23:59 Intake Total 1744.2 600 630 Output Total 1 150 800 Balance 1743.2 450 -170 Meds/Results Medications: Active Medications Generic Name Dose Route Start Last Admin Trade Name Freq PRN Reason Stop Dose Admin Acetaminophen 650 mg 05/12/23 14:01 Acetaminophen 325 Mg Tablet PO Q4H PRN Mild Pain (1-3) or Fever Amiodarone HCl 200 mg 05/13/23 09:00 05/14/23 08:45 Amiodarone Hcl 200 Mg Tablet PO 200 mg DAILY PANCHO Administration Dextrose 12.5 gm 05/12/23 16:50 Dextrose 50% 25 Gm/50 Ml Syringe IV PUSH PRN PRN Hypoglycemia Protocol Diltiazem HCl 60 mg 05/12/23 17:00 05/14/23 08:44 Diltiazem Hcl 60 Mg Tablet PO 60 mg QID PANCHO Administration Famotidine 40 mg 05/13/23 09:00 05/14/23 08:44 Famotidine 20 Mg Tablet PO 40 mg GARY
[2023-05-14 12:05] LABS: Glucose Point of Care 261 mg/dl (65-105)
--- NOTE | 2023-05-14 13:41 | PC.NURSE ---
On 05/14/23, the student, [Gisele Eli], provided care and completed [facility] documentation on this patient. I have reviewed the student's documentation and agree with the findings.
[2023-05-14] MEDS: SODIUM CHLORIDE 500 MG TABLET 1000 MG PO ×2 (14:31→17:13)
[2023-05-14 16:00] VITALS: BP 128/60; PULSE 70; RESP 15; TEMP 36.5; O2SAT 96
[2023-05-14 17:07] LABS: Glucose Point of Care 210 mg/dl (65-105)
[2023-05-14] MEDS: LATANOPROST 0.005% OP SOLN 2.5 ML BTL 1 DROP EACH EYE (20:11)
[2023-05-14] MEDS: SIMVASTATIN 10 MG TABLET PO (20:12)
[2023-05-14 20:31] LABS: Glucose Point of Care 274 mg/dl (65-105)
[2023-05-14 22:03] VITALS: BP 116/60; PULSE 60; RESP 14; TEMP 36.8; O2SAT 100
[2023-05-15 05:51] LABS: Anion Gap 2 mmol/L (4-12); Blood Urea Nitrogen 15 mg/dL (9-20); Calcium 8.9 mg/dL (8.4-10.2); Carbon Dioxide 31 mmol/L (22-30); Chloride 96 mmol/L (98-107); Estimated CRCL calculation 55 ml/min; Estimated Glomerular Filt Rate > 60; Glucose 215 mg/dL (65-110); Potassium 3.9 mmol/L (3.4-5.0); Sodium 129 mmol/L (137-145)
[2023-05-15 06:22] VITALS: BP 136/68; PULSE 65; RESP 18; TEMP 36.3; O2SAT 100
[2023-05-15 08:00] VITALS: BP 104/67; PULSE 60; RESP 12; TEMP 36.8; O2SAT 98
[2023-05-15 08:06] VITALS: PULSE 78
[2023-05-15] MEDS: AMIODARONE HCL 200 MG TABLET PO (08:06)
[2023-05-15] MEDS: SODIUM CHLORIDE 500 MG TABLET 1000 MG PO ×3 (08:07→17:12)
[2023-05-15] MEDS: lisinopriL 5 MG TABLET PO (08:07)
[2023-05-15] MEDS: levETIRAcetam 500 MG TABLET 2000 MG PO ×2 (08:07→20:47)
[2023-05-15] MEDS: FAMOTIDINE 20 MG TABLET 40 MG PO (08:07)
[2023-05-15] MEDS: dilTIAZem HCL 60 MG TABLET PO ×4 (08:07→20:47)
[2023-05-15 08:08] LABS: Glucose Point of Care 217 mg/dl (65-105)
--- NOTE | 2023-05-15 08:49 | P.PNNP_ITS ---
Progress Note: A&P Assessment and Plan (1) Hyponatremia: Code(s): E87.1 - Hypo-osmolality and hyponatremia Status: Acute Assessment and Plan: * thought to be seconday to head trauma/subdural hematomas * reported treated with manniton and 3% saline at [facility] (unclear how low sodium dropped before this intervention) * evaluation to date noted: * repeat brain CT on 05/11 shows bilateral subdural hematomas * urine electrolytes are prerenal * TSH okay * Cortisol 12.4. Will check a Cortrosyn stim * SPEP is pending * serum/urine osmolality pending * agree with fluid restriction. Will continue this. * Sodium level improved again to 129. (2) Chronic subdural hematoma: Code(s): I62.03 - Nontraumatic chronic subdural hemorrhage Status: Acute Assessment and Plan: * Neurology following (3) Seizures: Code(s): R56.9 - Unspecified convulsions Status: Acute Assessment and Plan: * A recent symptoms * on Keppra * Neurology following (4) Hypertension: Code(s): I10 - Essential (primary) hypertension Status: Chronic Assessment and Plan: * Systolic ranging from 104-136 in the last 24hours * follow trend of hemodynamics (5) Type 2 diabetes mellitus with hyperglycemia: Code(s): E11.65 - Type 2 diabetes mellitus with hyperglycemia Status: Chronic Assessment and Plan: * follow acc-cheks * glycemic control per hospitalists Subjective Date/time seen: 05/15/23 08:49 Interval history: Patient is feeling okay. Resting comfortably in bed. He is about to eat breakfast. Exam Narrative: WDWN in NAD skin no rash or subQ nodules head ncat lungs clear bilaterally cor reg no rub abd BS+ nontender and soft ext no edema or cyanosis. Objective Data Vital Signs Vital Signs: Vital Signs - 24 hr 05/14/23 10:19 05/14/23 16:00 05/14/23 22:03 Temperature 97.7 F 98.3 F Pulse Rate 70 60 Respiratory Rate 15 14 Blood Pressure 128/60 116/60 Pulse Oximetry 96 100 Oxygen Delivery Room Air 05/15/23 06:22 05/15/23 08:06 05/15/23 08:00 Temperature 97.3 F L 98.2 F Pulse Rate 65 78 60 Respiratory Rate 18 12 Blood Pressure 136/68 104/67 Pulse Oximetry 100 98 Oxygen Delivery Intake/Output Intake/Output: Intake & Output 05/12/23 05/13/23 05/14/23 05/15/23 23:59 23:59 23:59 23:59 Intake Total 1744.2 600 960 Output Total 1 150 1325 300 Balance 1743.2 450 -365 300 Meds/Results Medications: Active Medications Generic Name Dose Route Start Last Admin Trade Name Freq PRN Reason Stop Dose Admin Acetaminophen 650 mg 05/12/23 14:01 Acetaminophen 325 Mg Tablet PO Q4H PRN Mild Pain (1-3) or Fever Amiodarone HCl 200 mg 05/13/23 09:00 05/15/23 08:06 Amiodarone Hcl 200 Mg Tablet PO 200 mg DAILY PANCHO Administration Dextrose 12.5 gm 05/12/23 16:50 Dextrose 50% 25 Gm/50 Ml Syringe IV PUSH PRN PRN Hypoglycemia Protocol Diltiazem HCl 60 mg 05/12/23 17:00 05/15/23 08:07
--- NOTE | 2023-05-15 08:49 | PM.PNNEP ---
Progress Note: A&P Assessment and Plan (1) Hyponatremia: Code(s): E87.1 - Hypo-osmolality and hyponatremia Status: Acute Assessment and Plan: thought to be seconday to head trauma/subdural hematomas reported treated with manniton and 3% saline at [facility] (unclear how low sodium dropped before this intervention) evaluation to date noted: repeat brain CT on 05/11 shows bilateral subdural hematomas urine electrolytes are prerenal TSH okay Cortisol 12.4. Will check a Cortrosyn stim SPEP is pending serum/urine osmolality pending agree with fluid restriction. Will continue this. Sodium level improved again to 129. (2) Chronic subdural hematoma: Code(s): I62.03 - Nontraumatic chronic subdural hemorrhage Status: Acute Assessment and Plan: Neurology following (3) Seizures: Code(s): R56.9 - Unspecified convulsions Status: Acute Assessment and Plan: A recent symptoms on [facility] Neurology following (4) Hypertension: Code(s): I10 - Essential (primary) hypertension Status: Chronic Assessment and Plan: Systolic ranging from 104-136 in the last 24hours follow trend of hemodynamics (5) Type 2 diabetes mellitus with hyperglycemia: Code(s): E11.65 - Type 2 diabetes mellitus with hyperglycemia Status: Chronic Assessment and Plan: follow acc-cheks glycemic control per hospitalists Subjective Date/time seen: 05/15/23 08:49 Interval history: Patient is feeling okay. Resting comfortably in bed. He is about to eat breakfast. Exam Narrative: WDWN in NAD skin no rash or subQ nodules head ncat lungs clear bilaterally cor reg no rub abd BS+ nontender and soft ext no edema or cyanosis. Objective Data Vital Signs Vital Signs: Vital Signs - 24 hr 05/14/23 10:19 05/14/23 16:00 05/14/23 22:03 Temperature 97.7 F 98.3 F Pulse Rate 70 60 Respiratory Rate 15 14 Blood Pressure 128/60 116/60 Pulse Oximetry 96 100 Oxygen Delivery Room Air 05/15/23 06:22 05/15/23 08:06 05/15/23 08:00 Temperature 97.3 F L 98.2 F Pulse Rate 65 78 60 Respiratory Rate 18 12 Blood Pressure 136/68 104/67 Pulse Oximetry 100 98 Oxygen Delivery Intake/Output Intake/Output: Intake & Output 05/12/23 05/13/23 05/14/23 05/15/23 23:59 23:59 23:59 23:59 Intake Total 1744.2 600 960 Output Total 1 150 1325 300 Balance 1743.2 450 -365 -300 Meds/Results Medications: Active Medications Generic Name Dose Route Start Last Admin Trade Name Freq PRN Reason Stop Dose Admin Acetaminophen 650 mg 05/12/23 14:01 Acetaminophen 325 Mg Tablet PO Q4H PRN Mild Pain (1-3) or Fever Amiodarone HCl 200 mg 05/13/23 09:00 05/15/23 08:06 Amiodarone Hcl 200 Mg Tablet PO 200 mg DAILY PANCHO Administration Dextrose 12.5 gm 05/12/23 16:50 Dextrose 50% 25 Gm/50 Ml Syringe IV PUSH PRN PRN Hypoglycemia Protocol Diltiazem HCl 60 mg 05/12/23 17:00 05/15/23 08:07 Diltiazem Hcl 60 Mg Tablet PO 60 mg QID PANCHO Administration Famotidine 40 mg 05/13/23 09:00 05/15/23 08:07 Famotidine 20 Mg Tablet PO 40 mg DAILY PANCHO Administration Glucagon 1 mg 05/12/23 16:50 Glucagon For Inj 1 Mg Vial IM PRN PRN Hypoglycemia Protocol Glucose 15 gm 05/12/23 16:50 Glucose Oral Gel 15 Gm Of Glucse In 37.5 Gm Tube PO PRN PRN Hypoglycemia Protocol Dextrose 1,000 mls @ 100 mls/hr 05/12/23 16:50 Dextrose 5% 1,000 Ml IVPB PRN PRN Hypoglycemia Protocol Insulin Aspart 2 - 5 units 05/12/23 17:00 05/14/23 17:13 Insulin Aspart (*Bkc) 100 Units/Ml SUB-Q 2 units TIDWM PANCHO Administration Protocol Insulin Aspart 1 - 2 units 05/12/23 21:00 05/14/23 20:18 Insulin Aspart (*Bkc) 100 Units/Ml SUB-Q 1 units HS PANCHO Administration Protocol Latanoprost 1 drop 05/12/23 21:00 05/14/23 20:11
--- NOTE | 2023-05-15 08:58 | P.PNIM_ITS ---
Progress Note: A&P Assessment and Plan (1) Subdural hematoma without coma: Qualifiers: Encounter type: initial encounter Loss of consciousness presence/duration: without LOC Qualified Code(s): S06.5X0A - Traumatic subdural hemorrhage without loss of consciousness, initial encounter Code(s): S06.5XAA - Traumatic subdural hemorrhage with loss of consciousness status u nknown, initial encounter Status: Acute (2) Hyponatremia: Code(s): E87.1 - Hypo-osmolality and hyponatremia Status: Acute (3) Seizure: Code(s): R56.9 - Unspecified convulsions Status: Acute (4) Chronic atrial fibrillation: Code(s): I48.20 - Chronic atrial fibrillation, unspecified Status: Acute (5) Type 2 diabetes mellitus with hyperglycemia: Code(s): E11.65 - Type 2 diabetes mellitus with hyperglycemia Status: Chronic (6) HTN (hypertension): Qualifiers: Hypertension type: unspecified Qualified Code(s): I10 - Essential (primary) hypertension Code(s): I10 - Essential (primary) hypertension Status: Acute (7) Mixed hyperlipidemia: Code(s): E78.2 - Mixed hyperlipidemia Status: Acute Plan (1) Hyponatremia: ?Code(s): E87.1 - Hypo-osmolality and hyponatremia ?Status:?Acute ?Assessment and Plan: 05/13/2023: * Patient had a recent fall on April 26 and was found to have a 2.6 cm subdural hematoma which he was transferred to [place].? Initially there was no surgical intervention indicated in his anticoagulation was reversed.? He developed increased left-sided weakness and was administered mannitol and hypertonic saline due to low sodium level. 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 p.o. Sodium level is improving (2) Chronic subdural hematoma: ?Code(s): I62.03 - Nontraumatic chronic subdural hemorrhage ?Status:?Acute ?Assessment and Plan: 05/13/2023: * Patient was noted to be slow to respond to questions in tasks at [facility]. * Patient has history of recent fall on April 26 and was found to have a 2.6 cm subdural hematoma which he was transferred to [place].? No surgical i ntervention was indicated at that time and his anticoagulation was reversed.? He developed left-sided weakness it was and was administered mannitol and hypertonic saline.? He also had an EEG which was consistent with seizure was started on Keppra. * CT of the brain without contrast this admission showed bilateral acute subdural hematoma, right worse than, age-related changes.? These results were compared to his initial resulted [place] with the neurosurgery team at [facility] and the neurosurgery team states this can today shows improvement the previous scan.? They did not warrant any further workup at this time. * Neurology consulted precautionary * Continue PT and OT * Continue neuro checks q.4 hour No new focal deficit * (3) Seizures: ?Code(s): R56.9 - Unspecified convulsions ?Status:?Acute ?Assessment and Plan: 05/13/2023: * Continue Keppra * Continue seizure precautions * Neurology consulted (4) Chronic a
--- NOTE | 2023-05-15 08:58 | PM.IMPN ---
Progress Note: A&P Assessment and Plan (1) Subdural hematoma without coma: Qualifiers: Encounter type: initial encounter Loss of consciousness presence/duration: without LOC Qualified Code(s): S06.5X0A - Traumatic subdural hemorrhage without loss of consciousness, initial encounter Code(s): S06.5XAA - Traumatic subdural hemorrhage with loss of consciousness status unknown, initial encounter Status: Acute (2) Hyponatremia: Code(s): E87.1 - Hypo-osmolality and hyponatremia Status: Acute (3) Seizure: Code(s): R56.9 - Unspecified convulsions Status: Acute (4) Chronic atrial fibrillation: Code(s): I48.20 - Chronic atrial fibrillation, unspecified Status: Acute (5) Type 2 diabetes mellitus with hyperglycemia: Code(s): E11.65 - Type 2 diabetes mellitus with hyperglycemia Status: Chronic (6) HTN (hypertension): Qualifiers: Hypertension type: unspecified Qualified Code(s): I10 - Essential (primary) hypertension Code(s): I10 - Essential (primary) hypertension Status: Acute (7) Mixed hyperlipidemia: Code(s): E78.2 - Mixed hyperlipidemia Status: Acute Plan (1) Hyponatremia: ?Code(s): E87.1 - Hypo-osmolality and hyponatremia ?Status:?Acute ?Assessment and Plan: 05/13/2023: Patient had a recent fall on April 26 and was found to have a 2.6 cm subdural hematoma which he was transferred to [place].? Initially there was no surgical intervention indicated in his anticoagulation was reversed.? He developed increased left-sided weakness and was administered mannitol and hypertonic saline due to low sodium level. 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 p.o. Sodium level is improving (2) Chronic subdural hematoma: ?Code(s): I62.03 - Nontraumatic chronic subdural hemorrhage ?Status:?Acute ?Assessment and Plan: 05/13/2023: Patient was noted to be slow to respond to questions in tasks at [facility]3]. Patient has history of recent fall on April 26 and was found to have a 2.6 cm subdural hematoma which he was transferred to [place].? No surgical intervention was indicated at that time and his anticoagulation was reversed.? He developed left-sided weakness it was and was administered mannitol and hypertonic saline.? He also had an EEG which was consistent with seizure was started on Keppra. CT of the brain without contrast this admission showed bilateral acute subdural hematoma, right worse than, age-related changes.? These results were compared to his initial resulted [place] with the neurosurgery team at [facility] and the neurosurgery team states this can today shows improvement the previous scan.? They did not warrant any further workup at this time. Neurology consulted precautionary Continue PT and OT Continue neuro checks q.4 hour No new focal deficit (3) Seizures: ?Code(s): R56.9 - Unspecified convulsions ?Status:?Acute ?Assessment and Plan: 05/13/2023: Continue Keppra Continue seizure precautions Neurology consulted (4) Chronic atrial fibrillation: ?Code(s): I48.20 - Chronic atrial fibrillation, unspecified ?Status:?Acute ?Assessment and Plan: 05/13/2023: Continue amiodarone and Cardizem Not on anticoagulation currently Will resume anticoagulation therapy when it is approved by neurologist (5) Type 2 diabetes mellitus: ?Qualifiers: ?Diabetes mellitus complication detail:?with cataract??Diabetes mellitus complication status:?with ophthalmic complicati
[2023-05-15] MEDS: INSULIN ASPART (*BKC) 100 UNITS/ML SUB-Q ×4 (09:27→20:46)
[2023-05-15 12:12] LABS: Glucose Point of Care 247 mg/dl (65-105)
[2023-05-15 16:00] VITALS: BP 110/64; PULSE 64; RESP 14; TEMP 36.4; O2SAT 98
[2023-05-15 17:04] LABS: Glucose Point of Care 229 mg/dl (65-105)
[2023-05-15 19:41] VITALS: BP 131/57; PULSE 54; RESP 16; TEMP 36.3; O2SAT 91
[2023-05-15 19:49] LABS: Levetiracetam Keppra 13.1 mcg/mL (6.0-46.0)
[2023-05-15 20:25] LABS: Osmolality, Urine 119 mOsm/kg (50-1200)
[2023-05-15] MEDS: SIMVASTATIN 10 MG TABLET PO (20:47)
[2023-05-15 20:51] LABS: Glucose Point of Care 221 mg/dl (65-105)
[2023-05-15] MEDS: LATANOPROST 0.005% OP SOLN 2.5 ML BTL 1 DROP EACH EYE (21:59)
[2023-05-16 03:35] VITALS: BP 142/72; PULSE 61; RESP 16; TEMP 36.6; O2SAT 99
[2023-05-16 06:10] LABS: Anion Gap 8 mmol/L (4-12); Blood Urea Nitrogen 13 mg/dL (9-20); Calcium 8.9 mg/dL (8.4-10.2); Carbon Dioxide 26 mmol/L (22-30); Chloride 98 mmol/L (98-107); Estimated CRCL calculation 72 ml/min; Estimated Glomerular Filt Rate > 60; Glucose 202 mg/dL (65-110); Potassium 3.8 mmol/L (3.4-5.0); Sodium 132 mmol/L (137-145)
--- NOTE | 2023-05-16 07:36 | P.PNIM_ITS ---
Progress Note: A&P Assessment and Plan (1) Subdural hematoma without coma: Qualifiers: Encounter type: initial encounter Loss of consciousness presence/duration: without LOC Qualified Code(s): S06.5X0A - Traumatic subdural hemorrhage without loss of consciousness, initial encounter Code(s): S06.5XAA - Traumatic subdural hemorrhage with loss of consciousness status u nknown, initial encounter Status: Acute (2) Hyponatremia: Code(s): E87.1 - Hypo-osmolality and hyponatremia Status: Acute (3) Seizure: Code(s): R56.9 - Unspecified convulsions Status: Acute (4) Chronic atrial fibrillation: Code(s): I48.20 - Chronic atrial fibrillation, unspecified Status: Acute (5) Type 2 diabetes mellitus with hyperglycemia: Code(s): E11.65 - Type 2 diabetes mellitus with hyperglycemia Status: Chronic (6) HTN (hypertension): Qualifiers: Hypertension type: unspecified Qualified Code(s): I10 - Essential (primary) hypertension Code(s): I10 - Essential (primary) hypertension Status: Acute (7) Mixed hyperlipidemia: Code(s): E78.2 - Mixed hyperlipidemia Status: Acute Plan (1) Hyponatremia: ?Code(s): E87.1 - Hypo-osmolality and hyponatremia ?Status:?Acute ?Assessment and Plan: 05/13/2023: * Patient had a recent fall on April 26 and was found to have a 2.6 cm subdural hematoma which he was transferred to [place].? Initially there was no surgical intervention indicated in his anticoagulation was reversed.? He developed increased left-sided weakness and was administered mannitol and hypertonic saline due to low sodium level. 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 p.o. Sodium level is improving, Na 132 today (2) Chronic subdural hematoma: ?Code(s): I62.03 - Nontraumatic chronic subdural hemorrhage ?Status:?Acute ?Assessment and Plan: 05/13/2023: * Patient was noted to be slow to respond to questions in tasks at [facility]. * Patient has history of recent fall on April 26 and was found to have a 2.6 cm subdural hematoma which he was transferred to [place].? No surgical intervention was indicated at that time and his anticoagulation was reversed.? He developed left-sided weakness it was and was administered mannitol and hypertonic saline.? He also had an EEG which was consistent with seizure was started on Keppra. * CT of the brain without contrast this admission showed bilateral acute subdural hematoma, right worse than, age-related changes.? These results were compared to his initial resulted [place] with the neurosurgery team at [facility] and the neurosurgery team states this can today shows improvement the previous scan.? They did not warrant any further workup at this time. * Neurology consulted precautionary * Continue PT and OT * Continue neuro checks q.4 hour No new focal deficit * (3) Seizures: ?Code(s): R56.9 - Unspecified convulsions ?Status:?Acute ?Assessment and Plan: 05/13/2023: * Continue Keppra * Continue seizure precautions * Neurology consulted * no seizur
--- NOTE | 2023-05-16 07:36 | PM.IMPN ---
Progress Note: A&P Assessment and Plan (1) Subdural hematoma without coma: Qualifiers: Encounter type: initial encounter Loss of consciousness presence/duration: without LOC Qualified Code(s): S06.5X0A - Traumatic subdural hemorrhage without loss of consciousness, initial encounter Code(s): S06.5XAA - Traumatic subdural hemorrhage with loss of consciousness status unknown, initial encounter Status: Acute (2) Hyponatremia: Code(s): E87.1 - Hypo-osmolality and hyponatremia Status: Acute (3) Seizure: Code(s): R56.9 - Unspecified convulsions Status: Acute (4) Chronic atrial fibrillation: Code(s): I48.20 - Chronic atrial fibrillation, unspecified Status: Acute (5) Type 2 diabetes mellitus with hyperglycemia: Code(s): E11.65 - Type 2 diabetes mellitus with hyperglycemia Status: Chronic (6) HTN (hypertension): Qualifiers: Hypertension type: unspecified Qualified Code(s): I10 - Essential (primary) hypertension Code(s): I10 - Essential (primary) hypertension Status: Acute (7) Mixed hyperlipidemia: Code(s): E78.2 - Mixed hyperlipidemia Status: Acute Plan (1) Hyponatremia: ?Code(s): E87.1 - Hypo-osmolality and hyponatremia ?Status:?Acute ?Assessment and Plan: 05/13/2023: Patient had a recent fall on April 26 and was found to have a 2.6 cm subdural hematoma which he was transferred to [place].? Initially there was no surgical intervention indicated in his anticoagulation was reversed.? He developed increased left-sided weakness and was administered mannitol and hypertonic saline due to low sodium level. 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 p.o. Sodium level is improving, Na 132 today (2) Chronic subdural hematoma: ?Code(s): I62.03 - Nontraumatic chronic subdural hemorrhage ?Status:?Acute ?Assessment and Plan: 05/13/2023: Patient was noted to be slow to respond to questions in tasks at [facility]. Patient has history of recent fall on April 26 and was found to have a 2.6 cm subdural hematoma which he was transferred to [place].? No surgical intervention was indicated at that time and his anticoagulation was reversed.? He developed left-sided weakness it was and was administered mannitol and hypertonic saline.? He also had an EEG which was consistent with seizure was started on Keppra. CT of the brain without contrast this admission showed bilateral acute subdural hematoma, right worse than, age-related changes.? These results were compared to his initial resulted [place] with the neurosurgery team at [facility] and the neurosurgery team states this can today shows improvement the previous scan.? They did not warrant any further workup at this time. Neurology consulted precautionary Continue PT and OT Continue neuro checks q.4 hour No new focal deficit (3) Seizures: ?Code(s): R56.9 - Unspecified convulsions ?Status:?Acute ?Assessment and Plan: 05/13/2023: Continue Keppra Continue seizure precautions Neurology consulted no seizure during hosptialiaztion (4) Chronic atrial fibrillation: ?Code(s): I48.20 - Chronic atrial fibrillation, unspecified ?Status:?Acute ?Assessment and Plan: 05/13/2023: Continue amiodarone and Cardizem Not on anticoagulation currently Will resume anticoagulation therapy when it is approved by neurologist (5) Type 2 diabetes mellitus: ?Qualifiers: ?Diabetes mellitus complication detail:?with cataract??Diabetes kristen
[2023-05-16 08:33] VITALS: O2SAT 90
[2023-05-16 08:44] VITALS: PULSE 61
[2023-05-16] MEDS: SODIUM CHLORIDE 500 MG TABLET 1000 MG PO ×2 (08:44→12:06)
[2023-05-16] MEDS: levETIRAcetam 500 MG TABLET 2000 MG PO (08:44)
[2023-05-16] MEDS: AMIODARONE HCL 200 MG TABLET PO (08:44)
[2023-05-16 08:45] LABS: Glucose Point of Care 225 mg/dl (65-105)
[2023-05-16] MEDS: FAMOTIDINE 20 MG TABLET 40 MG PO (08:45)
[2023-05-16] MEDS: lisinopriL 5 MG TABLET PO (08:45)
[2023-05-16] MEDS: dilTIAZem HCL 60 MG TABLET PO ×2 (08:45→12:06)
[2023-05-16] MEDS: INSULIN ASPART (*BKC) 100 UNITS/ML SUB-Q ×2 (08:51→12:02)
--- NOTE | 2023-05-16 09:28 | P.PNNP_ITS ---
Progress Note: A&P Assessment and Plan (1) Hyponatremia: Code(s): E87.1 - Hypo-osmolality and hyponatremia Status: Acute Assessment and Plan: * thought to be seconday to head trauma/subdural hematomas * reported treated with manniton and 3% saline at [facility] (unclear how low sodium dropped before this intervention) * evaluation to date noted: * repeat brain CT on 05/11 shows bilateral subdural hematomas * urine electrolytes are prerenal * TSH okay * Cortisol 12.4. Will check a Cortrosyn stim * SPEP is pending * serum/urine osmolality pending * continue fluid restriction of 1500 indefinitely. * Sodium level improved again to 132. * Okay for discharge whenever others are ready (2) Chronic subdural hematoma: Code(s): I62.03 - Nontraumatic chronic subdural hemorrhage Status: Acute Assessment and Plan: * Neurology following (3) Seizures: Code(s): R56.9 - Unspecified convulsions Status: Acute Assessment and Plan: * A recent symptoms * on Keppra * Neurology following (4) Hypertension: Code(s): I10 - Essential (primary) hypertension Status: Chronic Assessment and Plan: * Systolic ranging from 104-142 in the last 24hours * continue same medications (5) Type 2 diabetes mellitus with hyperglycemia: Code(s): E11.65 - Type 2 diabetes mellitus with hyperglycemia Status: Chronic Assessment and Plan: * follow [facility] * glycemic control per hospitalists Subjective Date/time seen: 05/16/23 09:28 Interval history: patient is feeling okay. Ate a good breakfast. Exam Narrative: WDWN in NAD skin no rash or subQ nodules head ncat lungs clear to auscultation cor reg no rub or gallop abd BS+ nontender and soft ext no edema or cyanosis. Objective Data Vital Signs Vital Signs: Vital Signs - 24 hr 05/15/23 09:30 05/15/23 16:00 05/15/23 19:41 Temperature 97.6 F 97.4 F L Pulse Rate 64 54 L Respiratory Rate 14 16 Blood Pressure 110/64 131/57 L Pulse Oximetry 98 91 Oxygen Delivery Room Air 05/15/23 20:38 05/16/23 03:35 05/16/23 08:44 Temperature 97.8 F Pulse Rate 61 61 Respiratory Rate 16 Blood Pressure 142/72 H Pulse Oximetry 99 Oxygen Delivery Room Air Intake/Output Intake/Output: Intake & Output 05/13/23 05/14/23 05/15/23 05/16/23 23:59 23:59 23:59 23:59 Intake Total 600 960 570 290 Output Total 150 1325 700 250 Balance 450 365 -130 40 Meds/Results Medications: Active Medications Generic Name Dose Route Start Last Admin Trade Name Freq PRN Reason Stop Dose Admin Acetaminophen 650 mg 05/12/23 14:01 Acetaminophen 325 Mg Tablet PO Q4H PRN Mild Pain (1-3) or Fever Amiodarone HCl 200 mg 05/13/23 09:00 05/16/23 08:44 Amiodarone Hcl 200 Mg Tablet PO 200 mg DAILY PANCHO Administration Dextrose 12.5 gm 05/12/23 16:50 Dextrose 50% 25 Gm/50 Ml Syringe IV PUSH PRN PRN Hypoglycemia Protocol Diltiazem HCl 60 mg 05/12/23 17:
--- NOTE | 2023-05-16 09:28 | PM.PNNEP ---
Progress Note: A&P Assessment and Plan (1) Hyponatremia: Code(s): E87.1 - Hypo-osmolality and hyponatremia Status: Acute Assessment and Plan: thought to be seconday to head trauma/subdural hematomas reported treated with manniton and 3% saline at [facility] (unclear how low sodium dropped before this intervention) evaluation to date noted: repeat brain CT on 05/11 shows bilateral subdural hematomas urine electrolytes are prerenal TSH okay Cortisol 12.4. Will check a Cortrosyn stim SPEP is pending serum/urine osmolality pending continue fluid restriction of 1500 indefinitely. Sodium level improved again to 132. Okay for discharge whenever others are ready (2) Chronic subdural hematoma: Code(s): I62.03 - Nontraumatic chronic subdural hemorrhage Status: Acute Assessment and Plan: Neurology following (3) Seizures: Code(s): R56.9 - Unspecified convulsions Status: Acute Assessment and Plan: A recent symptoms on [facility] Neurology following (4) Hypertension: Code(s): I10 - Essential (primary) hypertension Status: Chronic Assessment and Plan: Systolic ranging from 104-142 in the last 24hours continue same medications (5) Type 2 diabetes mellitus with hyperglycemia: Code(s): E11.65 - Type 2 diabetes mellitus with hyperglycemia Status: Chronic Assessment and Plan: follow [facility] glycemic control per hospitalists Subjective Date/time seen: 05/16/23 09:28 Interval history: patient is feeling okay. Ate a good breakfast. Exam Narrative: WDWN in NAD skin no rash or subQ nodules head ncat lungs clear to auscultation cor reg no rub or gallop abd BS+ nontender and soft ext no edema or cyanosis. Objective Data Vital Signs Vital Signs: Vital Signs - 24 hr 05/15/23 09:30 05/15/23 16:00 05/15/23 19:41 Temperature 97.6 F 97.4 F L Pulse Rate 64 54 L Respiratory Rate 14 16 Blood Pressure 110/64 131/57 L Pulse Oximetry 98 91 Oxygen Delivery Room Air 05/15/23 20:38 05/16/23 03:35 05/16/23 08:44 Temperature 97.8 F Pulse Rate 61 61 Respiratory Rate 16 Blood Pressure 142/72 H Pulse Oximetry 99 Oxygen Delivery Room Air Intake/Output Intake/Output: Intake & Output 05/13/23 05/14/23 05/15/23 05/16/23 23:59 23:59 23:59 23:59 Intake Total 600 960 570 290 Output Total 150 1325 700 250 Balance 450 -365 -130 40 Meds/Results Medications: Active Medications Generic Name Dose Route Start Last Admin Trade Name Freq PRN Reason Stop Dose Admin Acetaminophen 650 mg 05/12/23 14:01 Acetaminophen 325 Mg Tablet PO Q4H PRN Mild Pain (1-3) or Fever Amiodarone HCl 200 mg 05/13/23 09:00 05/16/23 08:44 Amiodarone Hcl 200 Mg Tablet PO 200 mg DAILY PANCHO Administration Dextrose 12.5 gm 05/12/23 16:50 Dextrose 50% 25 Gm/50 Ml Syringe IV PUSH PRN PRN Hypoglycemia Protocol Diltiazem HCl 60 mg 05/12/23 17:00 05/16/23 08:45 Diltiazem Hcl 60 Mg Tablet PO 60 mg QID PANCHO Administration Famotidine 40 mg 05/13/23 09:00 05/16/23 08:45 Famotidine 20 Mg Tablet PO 40 mg DAILY PANCHO Administration Glucagon 1 mg 05/12/23 16:50 Glucagon For Inj 1 Mg Vial IM PRN PRN Hypoglycemia Protocol Glucose 15 gm 05/12/23 16:50 Glucose Oral Gel 15 Gm Of Glucse In 37.5 Gm Tube PO PRN PRN Hypoglycemia Protocol Dextrose 1,000 mls @ 100 mls/hr 05/12/23 16:50 Dextrose 5% 1,000 Ml IVPB PRN PRN Hypoglycemia Protocol Insulin Aspart 2 - 5 units 05/12/23 17:00 05/16/23 08:51 Insulin Aspart (*Bkc) 100 Units/Ml SUB-Q 2 units TIDWM PANCHO Administration Protocol Insulin Aspart 1 - 2 units 05/12/23 21:00 05/15/23 20:46 Insulin Aspart (*Bkc) 100 Units/Ml SUB-Q 1 units HS PANCHO Administration Protocol Latanoprost 1 drop 05/12/23 21:00
[2023-05-16 11:54] LABS: Glucose Point of Care 276 mg/dl (65-105)
--- NOTE | 2023-05-16 12:07 | PM.DS ---
DS: Admitting Diagnosis Discharge Date 05/16/23 Admitting Diagnosis (1) Subdural hematoma without coma: ?Qualifiers: ?Encounter type:?initial encounter??Loss of consciousness presence/duration:?without LOC? Qualified Code(s):?S06.5X0A - Traumatic subdural hemorrhage without loss of consciousness, initial encounter ?Code(s): S06.5XAA - Traumatic subdural hemorrhage with loss of consciousness status unknown, initial encounter ?Status:?Acute (2) Hyponatremia: ?Code(s): E87.1 - Hypo-osmolality and hyponatremia ?Status:?Acute (3) Seizure: ?Code(s): R56.9 - Unspecified convulsions ?Status:?Acute (4) Chronic atrial fibrillation: ?Code(s): I48.20 - Chronic atrial fibrillation, unspecified ?Status:?Acute (5) Type 2 diabetes mellitus with hyperglycemia: ?Code(s): E11.65 - Type 2 diabetes mellitus with hyperglycemia ?Status:?Chronic (6) HTN (hypertension): ?Qualifiers: ?Hypertension type:?unspecified? Qualified Code(s):?I10 - Essential (primary) hypertension ?Code(s): I10 - Essential (primary) hypertension ?Status:?Acute (7) Mixed hyperlipidemia: ?Code(s): E78.2 - Mixed hyperlipidemia ?Status:?Acute DS: Discharge Diagnosis Discharge Diagnosis (1) Subdural hematoma without coma: Qualifiers: Encounter type: initial encounter Loss of consciousness presence/duration: without LOC Qualified Code(s): S06.5X0A - Traumatic subdural hemorrhage without loss of consciousness, initial encounter Code(s): S06.5XAA - Traumatic subdural hemorrhage with loss of consciousness status unknown, initial encounter Status: Acute (2) Hyponatremia: Code(s): E87.1 - Hypo-osmolality and hyponatremia Status: Acute (3) Seizure: Code(s): R56.9 - Unspecified convulsions Status: Acute (4) Chronic atrial fibrillation: Code(s): I48.20 - Chronic atrial fibrillation, unspecified Status: Acute (5) Type 2 diabetes mellitus with hyperglycemia: Code(s): E11.65 - Type 2 diabetes mellitus with hyperglycemia Status: Chronic (6) HTN (hypertension): Qualifiers: Hypertension type: unspecified Qualified Code(s): I10 - Essential (primary) hypertension Code(s): I10 - Essential (primary) hypertension Status: Acute (7) Mixed hyperlipidemia: Code(s): E78.2 - Mixed hyperlipidemia Status: Acute DS: Summary Hospital Course Hospital Course: Per HP This is an 82-year-old male with atrial fibrillation, hypertension, hyperlipidemia, type 2 diabetes mellitus, and recent subdural hematoma complicated by seizures and resultant left hemiparesis for which he is currently undergoing rehab who presented to the emergency department for evaluation as he has been ?slow to respond this morning.? He fell out of bed on April 26 and was found to have a 2.6 cm parafalcine subdural hematoma for which he was transferred to [place]. Initially no surgical intervention was recommended and his anticoagulation was reversed. He developed increasing left-sided weakness and was administered mannitol and then hypertonic saline. EEG was consistent with multiple electrographic seizures and he was started on levetiracetam. He was transferred out of the ICU a week later and was discharged to [facility] on 05/08/2023. He has been participating in therapy however today he seemed to be slower to respond and he was sent to the ED for evaluation. He was afebrile on arrival to the ED with stable vital signs. Labs were significant for WBC count of 10.0, hemoglobin 12.6, platelet 145, sodium 120, chloride 89, creatinine 0.70, glucose 182. Brain CT was read as having bilateral acute subdural hematomas right worse than left. ED physician spoke with Neurosurgery at [place] who reviewed this CAT scan and they report that the subdural hematomas are in fact improved when compared to imaging taken at their facility last week. Th
[2023-05-16 13:50] VITALS: BP 118/54; PULSE 59; RESP 16; TEMP 36.6; O2SAT 100
[2023-05-16 20:42] LABS: Kappa\\Lambda Light Chains 1.76 (0.26-1.65); Lambda Light Chain 14.8 mg/L (5.7-26.3)
[2023-05-18 10:37] LABS: Alpha 1 Globulin 0.4 g/dL (0.2-0.3); Alpha 2 Globulin 0.7 g/dL (0.5-0.9); Beta 1 Globulin 0.4 g/dL (0.4-0.6); Gamma Globulin 0.6 g/dL (0.8-1.7); Protein, Total 5.3 g/dL (6.1-8.1)
[2023-05-19 19:19] LABS: Creatinine, Random Urine 90 mg/dL (20-320); Total Protein/Creatinine Ratio 222 mg/g creat (25-148)
== END 2023-05-16 14:45 | DRG 644 ==
LOC: ANHED 14:13 → ANHIMU 14:51 → ANH2MED 05-13 20:42
PROVIDERS: Internal Medicine Nephrology; Physician Assistant; Admitting Provider Family Medicine; Emergency Provider Family Medicine; PCP Internal Medicine; Visit Provider Hospitalist
DX: E22.2 Syndrome of inappropriate secretion of antidiuretic hormone (principal); G81.94 Hemiplegia, unspecified affecting left nondominant side; I48.20 Chronic atrial fibrillation, unspecified; S06.5XAD Traumatic subdural hemorrhage with loss of consciousness status unknown, subsequent encounter; W06.XXXD Fall from bed, subsequent encounter; E11.65 Type 2 diabetes mellitus with hyperglycemia; E78.2 Mixed hyperlipidemia; E78.5 Hyperlipidemia, unspecified; G40.909 Epilepsy, unspecified, not intractable, without status epilepticus; I35.0 Nonrheumatic aortic (valve) stenosis; I10 Essential (primary) hypertension; R19.7 Diarrhea, unspecified; Z79.84 Long term (current) use of oral hypoglycemic drugs; Z79.01 Long term (current) use of anticoagulants; Z98.49 Cataract extraction status, unspecified eye
CPT/HCPCS: 36415; 70450; 71045; 80048; 80053; 80177; 80307; 81001; 82140; 82533; 82570; 82607; 82948; 83735; 83883; 83930; 83935; 84155; 84156; 84165; 84166; 84295; 84300; 84443; 84540; 85025; 85610; 85730; 87493; 93005; 97110; 97161; 97166; 97530; 97535; 99285; A9270; J1815; J7030

== ENCOUNTER 2023-09-02 10:09 | Emergency (ER) | payer MEDICARE, SELFPAY ==
[2023-09-02 10:25] VITALS: BP 118/67; PULSE 92; RESP 16; TEMP 36.6; O2SAT 100
--- NOTE | 2023-09-02 11:55 | PC.NURSE ---
Pt requested water while in waiting area, instructed to remain NPO. Family reports low NA and liver enzymes as what is abnormal from previous blood draw.
[2023-09-02] MEDS: SODIUM CHLORIDE 0.9% IV 1,000 ML 999 ML IV CONT (12:56)
[2023-09-02 13:02] LABS: Basophils Percent Auto 0.3 % (0.2-1.2); Eosinophils Percent Auto 0.5 % (0-4.4); Hemoglobin 11.4 g/dL (14.0-18.0); Immature Granulocyte Absolute 0.07 K/mm3 (0.00-0.031); Immature Granulocyte Percent A 1.1 % (0-0.5); Lymphocytes Absolute Auto 0.35 K/mm3 (0.9-3.2); Lymphocytes Percent Auto 5.6 % (18.3-44.2); Mean Corpuscular HGB Conc 33.5 g/dl (32-36); Mean Corpuscular Hemoglobin 31.7 pg (26-34); Mean Corpuscular Volume 94.4 fl (80-100); Mean Platelet Volume 10.3 fl (7.4-10.4); Monocytes Absolute Auto 0.4 K/mm3 (0.1-0.6); Monocytes Percent Auto 6.1 % (2.6-8.5); Neutrophils Absolute Auto 5.4 K/mm3 (1.3-6.7); Neutrophils Percent Auto 86.4 % (45.5-73.1); Platelet Count Result 133 k/mm3 (150-375); Red Cell Distribution Width 13.9 % (11.5-14.5); White Blood Count 6.3 K/mm3 (4.5-10.0)
[2023-09-02 13:18] LABS: Alanine Aminotransferase 73 U/L (6-50); Albumin Level 3.2 g/dL (3.5-5.1); Alkaline Phosphatase 218 U/L (38-126); Anion Gap 8 mmol/L (4-12); Aspartate Amino Transferase 44 U/L (17-59); Bilirubin,Total 0.8 mg/dL (0.2-1.3); Blood Urea Nitrogen 13 mg/dL (9-20); Calcium 8.3 mg/dL (8.4-10.2); Carbon Dioxide 29 mmol/L (22-30); Chloride 94 mmol/L (98-107); Estimated CRCL calculation 62 ml/min; Estimated Glomerular Filt Rate > 60; Glucose 144 mg/dL (65-110); Lipase 32 U/L (23-300); Potassium 3.9 mmol/L (3.4-5.0); Sodium 131 mmol/L (137-145)
--- NOTE | 2023-09-02 14:32 | ED.GENADULT ---
HPI - General Adult General Chief complaint: Recheck/Abnormal Lab/Rx Stated complaint: ABNORMAL LABS Time Seen by Provider: 09/02/23 12:06 History of Present Illness HPI narrative: Patient is an 82-year-old male who presents ER for recheck of outpatient labs. He was told his sodium was 132 and he had abnormal liver enzymes. He has been having diarrhea for a week. Two episodes of loose stools today. Occasional dizziness. No fevers or chills or sweats. No chest pain or chest pressure. No additional concerns. No blood in stool. Related Data Home Medications Medication Instructions Recorded Confirmed amiodarone 200 mg tablet 200 mg PO DAILY 05/08/23 06/24/23 diltiazem HCl 30 mg tablet 60 mg PO QID 05/08/23 06/24/23 famotidine 40 mg tablet 40 mg PO DAILY 05/08/23 06/24/23 latanoprost 0.005 % eye drops 1 drp EACH EYE HS 05/08/23 06/24/23 levetiracetam 500 mg tablet 2,000 mg PO BID 05/08/23 06/24/23 metformin 500 mg tablet 1,000 mg PO BIDWM 05/08/23 06/24/23 sennosides 8.6 mg-docusate sodium 2 tab-cap PO BID PRN Constipation 05/08/23 06/24/23 50 mg tablet simvastatin 20 mg tablet 10 mg PO HS 05/08/23 06/24/23 Allergies Allergy/AdvReac Type Severity Reaction Status Date / Time azithromycin Allergy Swelling Verified 09/02/23 12:56 of Lip/Tongue/Throat hydrocodone AdvReac Hallucinati Verified 09/02/23 12:56 ng Review of Systems Review of Systems: All systems reviewed & are unremarkable except as noted in HPI and below Constitutional: Constitutional: Reports no additional constitutional complaints ENT: Reports system reviewed and no additional complaints, except as documented Cardiovascular: Cardiovascular: Reports no additional cardiovascular complaints Respiratory: Respiratory: Reports no additional respiratory complaints Gastrointestinal: Gastrointestinal: Denies abdominal pain, Reports diarrhea, Denies nausea and Denies vomiting Neurologic: Reports system reviewed and no additional complaints, except as documented [facility] Past Medical History Medical History Chronic anticoagulation Chronic atrial fibrillation Hypertension Mixed hyperlipidemia Moderate aortic stenosis by prior echocardiogram Ocular hypertension, bilateral Seizures Signs and symptoms involving cognition Traumatic subdural hematoma (04/27/23) Treated nonsurgically and complicated by seizures and left hemiparesis. Type 2 diabetes mellitus Surgical History Surgical History History of bilateral tympanoplasty History of cataract extraction (2016) History of hernia repair (1978) History of inguinal hernia repair (1993) Family History Family History Mother Leukemia Father Malignant neoplasm of prostate Kidney failure Sibling Hypertension Sibling Malignant neoplasm of prostate Social History Social History Social History: Surrogate medical decision maker: Elisa Ortiz, daughter. Code status: Full code. Smoking status: Never smoker Second hand tobacco smoke exposure: No Alcohol intake: never Substance use: never Substance use type: does not use Do You Feel Safe in your Home?: Yes Lack of Transportation: No Lack of Food: Never True Current Housing: I Have Housing Concerned About Future Housing: No Difficulty Paying Gas/Electric Bills: No Difficulty Paying for Meds: No Currently Unemployed: No Education: High School Diploma/GED Difficulty w/ Childcare or Family Care: No Living arrangements: alone Additional living arrangements comments: Lives alone and was independent of ADLs prior to subdural hematoma. 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 Spiritual care concerns: No Exam Narrative: [place]
[2023-09-02 15:03] VITALS: BP 133/78; PULSE 85; RESP 20; O2SAT 98
== END 2023-09-02 15:05 | disposition home or self-care (01) ==
PROVIDERS: Emergency Provider Emergency Medicine
DX: E87.1 Hypo-osmolality and hyponatremia (principal); R19.7 Diarrhea, unspecified; I48.20 Chronic atrial fibrillation, unspecified; I10 Essential (primary) hypertension; I35.0 Nonrheumatic aortic (valve) stenosis; E11.9 Type 2 diabetes mellitus without complications; E78.2 Mixed hyperlipidemia; Z98.49 Cataract extraction status, unspecified eye; Z79.84 Long term (current) use of oral hypoglycemic drugs; Z79.4 Long term (current) use of insulin; Z79.899 Other long term (current) drug therapy
CPT/HCPCS: 36415; 80053; 83690; 85025; 96360; 99283; J7030

== ENCOUNTER 2023-09-11 09:35 | Inpatient (IN) | payer MEDICARE, SELFPAY ==
--- NOTE | ~2023-09-11 | XR_ITS ---
XR chest 1V portable DATE: 09/13/2023 10:03 INDICATION: Cough. Pleural effusions. TECHNIQUE: Portable AP chest on 09/13/2023 at 0950 hours COMPARISON: 09/11/2023 CTA chest abdomen pelvis 09/11/2023 2 view chest FINDINGS: Cardiomegaly. There is pulmonary vascular congestion and redistribution. There are bilatera l central and particularly lower lung zone infiltrates and/or atelectasis. There are mild bilateral p leural effusions. Osteopenia. IMPRESSION: Interval pulmonary vascular congestion since 09/11/2023 with new central infiltrates, sugg esting congestive heart failure, pulmonary edema. Persistent bilateral lower lung infiltrate and/or atelectasis and small bilateral pleural effusions Reviewed, dictated and finalized at location J. IMPRESSION: Interval pulmonary vascular congestion since 09/11/2023 with new matteo tral infiltrates, suggesting congestive heart failure, pulmonary edema. Persistent bilateral lower lung infiltrate and/or atelectasis and small bilater al pleural effusions
--- NOTE | ~2023-09-11 | XR_ITS ---
EXAMINATION: XR chest 2V DATE: 09/11/2023 10:31 INDICATION: Weakness and confusion TECHNIQUE: frontal and lateral views of the chest were obtained. COMPARISON: Chest radiograph dated 05/13/2023 FINDINGS: Opacities at the bilateral lower lungs which includes small bilateral pleural effusions. No pulmonary edema or pneumothorax. Cardiac silhouette is partially obscured but does not appear enlarged. Mild t o moderate midthoracic spondylosis. IMPRESSION: 1. Small bilateral pleural effusions with associated right basilar atelectasis and/or pneumonia. Reviewed, dictated and finalized at location A.
--- NOTE | ~2023-09-11 | CT_ITS ---
EXAMINATION: CT chest abdomen pelvis w con DATE: 09/11/2023 11:51 INDICATION: Cough with possible pneumonia on chest radiograph and diarrhea. TECHNIQUE: Computed tomography (CT) of the chest, abdomen, and pelvis was performed with 100 mL Omnip aque-350 intravenous contrast. Automated exposure control and iterative reconstruction technique were employed. The dose-length product was 716.69 mGy-cm. COMPARISON: None FINDINGS: CHEST CT: 2.0 cm fluid attenuation cystic nodule at the left thyroid lobe. Moderate-sized left and moderate to large right posterior layering pleural effusions with compressive atelectasis at the dependent aspect of both lungs. No evident pneumonia or pulmonary edema in the aerated portions of the lungs. Calcifi ed nodule at the atelectatic right lower lobe consistent with old granulomatous disease. Heart size i s normal. Small pericardial effusion with pericardial enhancement suspicious for pericarditis. Athero sclerotic coronary artery calcific lesion. Thoracic aorta is normal in caliber with no dissection. Mu ltiple small likely reactive mediastinal lymph nodes which are more notable for number than size. Mod erate thoracic spondylosis with chronic mild anterior wedging of a few T6-T8 and bridging osteophytes at multiple levels consistent with diffuse idiopathic skeletal hyperostosis (DISH). ABDOMEN/PELVIS CT: A few scattered small calcified hepatic and more numerous splenic calcifications consistent with old granulomatous disease. Nonspecific splenomegaly measuring 16.1 cm craniocaudally. Dependently layerin g sludge versus gallstones in the nondilated gallbladder which without evident wall thickening. There is a very small amount of pericholecystic fluid/edema at the gallbladder fossa. 3.8 cm duodenal dive rticulum. Pancreas, bilateral adrenal glands and left kidney are normal. 2.4 similar exophytic right renal cyst. Bowels are unremarkable with no abnormal wall thickening or obstruction. Normal appendix. Prostatomegaly which impresses upon the base of the otherwise normal bladder. No free intraperitonea l gas or fluid. No pathologically enlarged abdominal or pelvic lymphadenopathy. There is calcified at herosclerosis of the aorta and many of the other arteries. Moderate lumbar spondylosis. IMPRESSION: 1. Small pericardial effusion with enhancement of the pericardium consistent with pericarditis. 2. Moderate-sized left and moderate to large right posterior layering pleural effusions with dependen t compressive atelectasis throughout both lungs most prominent at the lower lobes. No evident pulmona ry edema or pneumonia in the aerated portions of the lungs. 3. Sludge versus gallstones in the dependent gallbladder which appears normal aside from small amount of nonspecific pericholecystic fluid/edema at the gallbladder fossa. Suspicion for acute cholecystit is is low but could consider right upper quadrant ultrasound for further evaluation as clinically ind icated. 4. Prostatomegaly. 4. Nonspecific splenomegaly. Reviewed, dictated and finalized at location A. IMPRESSION: 1. Small pericardial effusion with enhancement of the pericardium consistent wi th pericarditis. 2. Moderate-sized left and moderate to large right posterior layering pleural e ffusions with dependent compressive atelectasis throughout both lungs most prom inent at the lower lobes. No evident pulmonary edema or pneumonia in the aerate d portions of the lungs. 3. Sludge versus gallstones in the dependent gallbladder which appears normal a side from small amount of nonspecific pericholecystic fluid/edema at the gallbl adder fossa. Suspicion for acute cholecystitis is low but could consider right upper quadrant ultrasound for further evaluation as clinically indicated. 4. Prostatomegaly. 4. Nonspecific splen
--- NOTE | ~2023-09-11 | CT_ITS ---
EXAMINATION: CT brain wo con DATE: 09/11/2023 10:28 INDICATION: Radiculopathy. TECHNIQUE: Computed tomography (CT) of the head was performed without intravenous contrast. The dose- length product was 681.00 mGy-cm. Automated exposure control and iterative reconstruction technique w ere employed. Automated exposure control and iterative reconstruction technique were employed. COMPARISON: CT dated 05/12/2023 FINDINGS: Generalized atrophy. There are scattered mild periventricular and subcortical white matter changes, most likely related to small vessel ischemic disease (microangiopathy). Interval resolution of bilateral subdural hematomas no acute intracranial hemorrhage, infarction, mass or mass effect. No ventriculomegaly or midline shift. Basilar cisterns are patent. Paranasal sinuses and mastoids are p neumatized. No depressed skull fractures. Midline sagittal images are unremarkable. IMPRESSION: 1. No acute intracranial abnormality. Reviewed, dictated and finalized at location B.
--- NOTE | 2023-09-11 09:42 | ECG_ITS ---
Test Date: 2023-09-11 09:46:43 Measurements Intervals [place] Rate: 89 P: 0 [place]: 0 QRS: 15 QRSD: 129 T: 0 QT: 388 QTc: 474 Interpretive Statements ATRIAL FIBRILLATION RIGHT BUNDLE BRANCH BLOCK BASELINE ARTIFACT- I, II, III, AVR, AVL ABNORMAL ECG No previous ECG available for comparison Electronically Signed On 09-11-2023 09:50:50 CDT by Houston Langston D.O.
[2023-09-11 09:57] VITALS: BP 110/64; PULSE 88; RESP 16; TEMP 36.7; O2SAT 97
--- NOTE | 2023-09-11 09:57 | ED.WEAKNESS ---
HPI - Weakness General Chief complaint: Weakness <LASHAWN Angel Last Filed: 09/11/23 16:32> Stated complaint: weakness and confusion <LASHAWN Angel Last Filed: 09/11/23 16:32> Time Seen by Provider: 09/11/23 09:46 <LASHAWN Angel Last Filed: 09/11/23 16:32> Source: patient <LASHAWN Angel Last Filed: 09/11/23 16:32> Mode of arrival: EMS <LASHAWN Angel Last Filed: 09/11/23 16:32> Limitations: no limitations <LASHAWN Angel Last Filed: 09/11/23 16:32> History of Present Illness HPI Narrative: Patient is an 82-year-old male, with PMH of AFIB, who presents the ED via EMS with report of altered mental status. Patient is resident of [facility]. Per report, he became increasingly confused today, weak, and had explosive diarrhea. MN reported that patient has been steadily declining for past few weeks. Daughter reports he attempted to go down to breakfast today early 3 times, which is abnormal for him. Patient is alert and oriented x4 upon my evaluation. He denies significant complaints. He does report having recent cough and shortness of breath over last few days, mild swelling in BLE. Denies chest pain. Denies abdominal pain, nausea, vomiting. Denies fevers. Patient is not on any anticoagulation for AFib due to fall risk. Is on amiodarone and diltiazem. <LASHAWN Angel Last Filed: 09/11/23 16:32> Related Data Home medications: Home Medications Medication Instructions Recorded Confirmed amiodarone 200 mg tablet 200 mg PO DAILY 05/08/23 09/11/23 diltiazem HCl 30 mg tablet 30 mg PO QID 05/08/23 09/11/23 latanoprost 0.005 % eye drops 1 drp EACH EYE HS 05/08/23 09/11/23 levetiracetam 500 mg tablet 1,000 mg PO BID 05/08/23 09/11/23 metformin 500 mg tablet 1,000 mg PO BIDWM 05/08/23 09/11/23 simvastatin 20 mg tablet 20 mg PO HS 05/08/23 09/11/23 acetaminophen 500 mg tablet 1,000 mg PO Q8H PRN Pain 09/11/23 09/11/23 <Kendra Lazo PA-C - Last Filed: 09/11/23 16:32> Allergies/Adverse reactions: Allergies Allergy/AdvReac Type Severity Reaction Status Date / Time azithromycin Allergy Swelling Verified 09/02/23 12:56 of Lip/Tongue/Throat hydrocodone AdvReac Hallucinati Verified 09/02/23 12:56 ng <Kendra Lazo PA-C - Last Filed: 09/11/23 16:32> Review of Systems Review of Systems: CONSTITUTIONAL: Denies fever, chills, or sweats. CARDIOVASCULAR: See HPI. RESPIRATORY: See HPI. GASTROINTESTINAL: See HPI. GENITOURINARY: Denies dysuria or hematuria. NEUROLOGIC: See HPI. <Kendra Lazo PA-C - Last Filed: 09/11/23 16:32> All systems reviewed & are unremarkable except as noted in HPI and below <Kendra Lazo PA-C - Last Filed: 09/11/23 16:32> [facility] Past Medical History Medical History: Medical History Chronic anticoagulation Chronic atrial fibrillation Hypertension Mixed hyperlipidemia Moderate aortic stenosis by prior echocardiogram Ocular hypertension, bilateral Seizures Signs and symptoms involving cognition Traumatic subdural hematoma (04/27/23) Treated nonsurgically and complicated by seizures and left hemiparesis. Type 2 diabetes mellitus <Kendra Lazo PA-C - Last Filed: 09/11/23 16:32> Surgical History Surgical History: Surgical History History of bilateral tympanoplasty History of cataract extraction (2016) History of hernia repair (1978) History of inguinal hernia repair (1993) <Kendra Lazo PA-C - Last Filed: 09/11/23 16:32> Family History Family History: Family History Mother Leukemia Father Malignant neoplasm of prostate Kidney failure Sibling Hypertension Siblin
[2023-09-11 10:15] LABS: Basophils Percent Auto 0.2 % (0.2-1.2); Eosinophils Percent Auto 0.1 % (0-4.4); Hematocrit 36.2 % (42.0-52.0); Immature Granulocyte Absolute 0.16 K/mm3 (0.00-0.031); Immature Platelet Fraction Pct 8.1 % (0.9-11.2); Lymphocytes Percent Auto 7.1 % (18.3-44.2); Mean Corpuscular HGB Conc 33.1 g/dl (32-36); Mean Corpuscular Hemoglobin 31.8 pg (26-34); Mean Platelet Volume 11.1 fl (7.4-10.4); Monocytes Absolute Auto 0.9 K/mm3 (0.1-0.6); Monocytes Percent Auto 5.7 % (2.6-8.5); Neutrophils Absolute Auto 13.3 K/mm3 (1.3-6.7); Neutrophils Percent Auto 85.9 % (45.5-73.1); Platelet Count Result 134 k/mm3 (150-375); Red Blood Count 3.77 M/mm3 (4.6-6.20); Red Cell Distribution Width 14.6 % (11.5-14.5); White Blood Count 15.4 K/mm3 (4.5-10.0)
[2023-09-11 10:17] LABS: INR 1.4; Prothrombin Time 17.1 Seconds (11.1-14.7)
[2023-09-11 10:18] LABS: Partial Thromboplastin Time 38.5 Seconds (22.3-36.8)
[2023-09-11 10:22] LABS: Lactic Acid Reflex 3.7 mmol/L (0.7-2.0)
[2023-09-11 10:24] LABS: Alanine Aminotransferase 19 U/L (6-50); Albumin Level 3.2 g/dL (3.5-5.1); Alkaline Phosphatase 116 U/L (38-126); Anion Gap 11 mmol/L (4-12); Aspartate Amino Transferase 19 U/L (17-59); Blood Urea Nitrogen 15 mg/dL (9-20); Calcium 8.2 mg/dL (8.4-10.2); Carbon Dioxide 25 mmol/L (22-30); Chloride 93 mmol/L (98-107); Estimated Glomerular Filt Rate > 60; Glucose 225 mg/dL (65-110); Magnesium 1.6 mg/dL (1.6-2.3); Sodium 129 mmol/L (137-145)
--- NOTE | 2023-09-11 10:55 | PC.NURSE ---
[place] voided on their own proir to using straight cath
[2023-09-11] MEDS: SODIUM CHLORIDE 0.9% IV 1,000 ML 999 ML IV CONT (11:10)
[2023-09-11] MEDS: MAGNESIUM SULF 1 GM/D5W 100 ML 1 GM/100 ML BAG IVPB (11:10)
[2023-09-11 11:11] LABS: Appearance Urine Cloudy (Clear); Bacteria Urine None Seen /hpf; Bilirubin Urine 1+ (Negative); Blood Urine Negative (Negative); Color Urine Dark Yellow (Yellow); Glucose Urine UA Negative (Negative); Hyaline Casts Urine Present /lpf; Ketones Urine 1+ mg/dL (Negative); Leukocyte Esterase Ur Negative LEU/UL (Negative); Need Manual Microscopic Reviewed; Nitrate Urine Negative (Negative); Protein Urine 1+ mg/dL (Negative); RBC Urine 0-2 /hpf (0-2); Specific Grav Ur 1.029 (1.001-1.035); Squamous Epithelial Cell Urine Occasional /hpf (Few); WBC Urine 0-5 /hpf (0-3)
[2023-09-11 11:12] LABS: Add Urine Microscopic? YES
[2023-09-11 12:07] LABS: Influenza A QL RT-PCR Negative (Negative); Influenza B QL RT-PCR Negative (Negative); RSV RNA, RT-PCR Negative (Negative); SARS-CoV-2 RNA PCR Negative (Negative)
[2023-09-11 12:31] VITALS: BP 135/67; PULSE 86; RESP 18; O2SAT 96
[2023-09-11 13:06] LABS: Reflex Lactic Acid Yes or No Add Lactic
[2023-09-11 13:11] LABS: NT Pro B Type Natriuretic Pept 3910 pg/mL (19.9-100); Troponin I < 0.012 ng/mL (0.000-0.034)
[2023-09-11 13:15] LABS: CRP 23.7 mg/dL (<1.0)
--- NOTE | 2023-09-11 14:10 | ECG_ITS ---
Test Date: 2023-09-11 14:22:22 Measurements Intervals [place] Rate: 91 P: 0 [place]: 0 QRS: 41 QRSD: 133 T: 0 QT: 374 QTc: 462 Interpretive Statements ATRIAL FIBRILLATION RIGHT BUNDLE BRANCH BLOCK BASELINE ARTIFACT- I, II, AVR, AVL, AVF ABNORMAL ECG Compared to ECG 09/11/2023 09:46:43 No significant changes Electronically Signed On 09-11-2023 14:34:53 CDT by Houston Langston D.O.
[2023-09-11 14:12] LABS: Lactic Acid 1.9 mmol/L (0.7-2.0)
[2023-09-11 14:50] LABS: Troponin I < 0.012 ng/mL (0.000-0.034)
[2023-09-11] MEDS: FUROSEMIDE INJ 40 MG/4 ML VIAL IV PUSH (14:53)
[2023-09-11 15:14] VITALS: BP 115/64; PULSE 96; RESP 28; O2SAT 94
[2023-09-11 15:19] LABS: Erythrocyte Sedimentation Rate 64 mm/hr (0-20)
--- NOTE | 2023-09-11 15:39 | ADMGEN ---
This patient, Michael Neff, was admitted to Medical Room 259-01. Patient/family oriented to hospital policies and general routines including ID bracelet, bed and alarms, visiting hours, pain management, procedures, bathroom and other care routines, personal items, smoking policy, room service/diet, and visiting hours. Information on how to activate the Rapid Response Team has been discussed. Patient/Family are encouraged to report perceived risks to care and to ask questions if they do not understand what they are told or what they should do.
[2023-09-11 15:43] VITALS: BMI 24.4
[2023-09-11 16:19] VITALS: PULSE 94
--- NOTE | 2023-09-11 17:02 | PM.IMHP ---
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 The patient is currently living at [facility]. History is taken from the patient and his son. Son reports they want to take him back home soon. For the past 2 weeks the patient has had loose stools brown in color. Son reports he is also had poor appetite and is likely dehydrated. The patient had been complaining of shortness of breath and a dry cough as well. On the morning of admission 09/11/2023 the patient was reported to be confused, he went to get breakfast early on 3 separate occasions. The patient reports he also had explosive watery diarrhea. No blood no black tarry stool. Patient arrived to [facility] via EMS, he was A&O x4 on arrival. Blood pressure 110/64. EKG demonstrating rate controlled AFib. White blood cell count 15.4, hemoglobin 12, platelets 134, sodium 129, serum creatinine 0.9, lactic acid 3.7 coming down to 1.9, CRP 23.7, BNP 3910, troponin negative x2, albumin 3.2. Urinalysis not indicative of infection. Quad viral screen negative. Head CT without intracranial abnormality, interval resolution of subdural hematoma. CT abdomen pelvis chest with contrast demonstrating small pericardial effusion with enhancement of the pericardium consistent with pericarditis. Denies chest pain. Moderate-sized left and moderate to large right posterior layering pleural effusions with dependent compressive atelectasis throughout both lungs most prominent at the lower lobes. No evidence of pulmonary edema or pneumonia in the aerated portion of the lungs. Sludge versus gallstones in the dependent gallbladder and small amount of pericholecystic fluid/edema in the fossa. Patient denies abdominal pain. Prostatomegaly. Nonspecific splenomegaly. Review of Systems Review of Systems: All systems reviewed & are unremarkable except as noted in HPI and below (Subjective) [facility] Past Medical History Medical History Chronic anticoagulation Chronic atrial fibrillation Hypertension Mixed hyperlipidemia Moderate aortic stenosis by prior echocardiogram Ocular hypertension, bilateral Seizures Signs and symptoms involving cognition Traumatic subdural hematoma (04/27/23) Treated nonsurgically and complicated by seizures and left hemiparesis. Type 2 diabetes mellitus Surgical History Surgical History History of bilateral tympanoplasty History of cataract extraction (2016) History of hernia repair (1978) History of inguinal hernia repair (1993) Family History Family History Mother Leukemia Father Malignant neoplasm of prostate Kidney failure Sibling Hypertension Sibling Malignant neoplasm of prostate Social History Social History Social History: Surrogate medical decision maker: Elisa Ortiz, daughter. Code status: Full code. Smoking status: Never smoker Second hand tobacco smoke exposure: No Alcohol intake: never Substance use: never Substance use type: does not use Do You Feel Safe in your Home?: Yes Lack of Transportation: No Lack of Food: Never True Current Housing: I Have Housing Concerned About Future Housing: No Difficulty Paying Gas/Electric Bills: No Difficulty Paying for Meds: No Currently Unemployed: No Education: Associate Degree Difficulty w/ Childcare or
[2023-09-11 17:35] LABS: Troponin I 0.019 ng/mL (0.000-0.034)
[2023-09-11 20:00] VITALS: PULSE 93; PULSE 94; RESP 28; O2SAT 94
[2023-09-11] MEDS: SIMVASTATIN 20 MG TABLET PO (20:49)
[2023-09-11] MEDS: levETIRAcetam 500 MG TABLET 1000 MG PO (20:49)
[2023-09-11] MEDS: dilTIAZem HCL 30 MG TABLET PO (20:49)
[2023-09-11] MEDS: LATANOPROST 0.005% OP SOLN 2.5 ML BTL 1 DROP EACH EYE (20:50)
[2023-09-11 21:34] LABS: Glucose Point of Care 192 mg/dl (65-105)
[2023-09-11 22:00] VITALS: BP 108/60; PULSE 89; RESP 18; TEMP 36.7; O2SAT 96
[2023-09-12] VITALS (10 sets, daily range): BP systolic 100–114; BP diastolic 50–70; PULSE 69–89; RESP 20–26; TEMP 36.8–37.1; O2SAT 94–97
[2023-09-12 05:28] LABS: Basophils Percent Auto 0.3 % (0.2-1.2); Eosinophils Percent Auto 0.2 % (0-4.4); Hematocrit 35.5 % (42.0-52.0); Hemoglobin 11.8 g/dL (14.0-18.0); Immature Granulocyte Absolute 0.07 K/mm3 (0.00-0.031); Immature Granulocyte Percent A 0.6 % (0-0.5); Immature Platelet Fraction Pct 9.1 % (0.9-11.2); Lymphocytes Absolute Auto 1.09 K/mm3 (0.9-3.2); Mean Corpuscular HGB Conc 33.2 g/dl (32-36); Mean Corpuscular Hemoglobin 31.7 pg (26-34); Mean Corpuscular Volume 95.4 fl (80-100); Mean Platelet Volume 11.1 fl (7.4-10.4); Monocytes Percent Auto 7.8 % (2.6-8.5); Neutrophils Percent Auto 82.1 % (45.5-73.1); Platelet Count Result 116 k/mm3 (150-375); Red Blood Count 3.72 M/mm3 (4.6-6.20); Red Cell Distribution Width 14.6 % (11.5-14.5); White Blood Count 12.2 K/mm3 (4.5-10.0)
[2023-09-12 05:55] LABS: Procalcitonin 0.2 ng/mL
[2023-09-12 05:57] LABS: Alanine Aminotransferase 17 U/L (6-50); Albumin Level 2.9 g/dL (3.5-5.1); Alkaline Phosphatase 116 U/L (38-126); Anion Gap 7 mmol/L (4-12); Aspartate Amino Transferase 19 U/L (17-59); Bilirubin,Total 1.6 mg/dL (0.2-1.3); Blood Urea Nitrogen 12 mg/dL (9-20); CRP 23.5 mg/dL (<1.0); Calcium 7.9 mg/dL (8.4-10.2); Carbon Dioxide 32 mmol/L (22-30); Chloride 92 mmol/L (98-107); Estimated CRCL calculation 62 ml/min; Estimated Glomerular Filt Rate > 60; Glucose 167 mg/dL (65-110); Magnesium 1.8 mg/dL (1.6-2.3); Potassium 3.5 mmol/L (3.4-5.0); Sodium 131 mmol/L (137-145)
--- NOTE | 2023-09-12 06:00 | ECHO_ITS ---
Patient Info Name: Michael Neff Age: 82 years : 1940 Gender: Male Ht: 74 in Wt: 190 lbs BSA: 2.12 m2 HR: 84 bpm BP: 114 / 70 mmHg Technical Quality: Fair Exam Date: 09/12/2023 11:37 AM Exam Location: Echo Lab Patient Status: Inpatient Admit Date: 09/12/2023 Staff Ordering Physician: Kendra Lazo PA-C Durable Medical Equipment Technician: Nahun Orozco RDCS Attending Provider: Afua Hanley APRN Referring Physician: Violet BATES; Exam Type: CA echo doppler color flow Study Info Indications - pericarditis - pleural effusions - CHF Complete two-dimensional, color flow and Doppler transthoracic echocardiogram is performed. Summary 1. Complete two-dimensional, color flow and Doppler transthoracic echocardiogram is performed. 2. Left ventricular chamber dimension is normal. 3. Left ventricular systolic function is normal, estimated at 60-65%. 4. There is no increased left ventricular wall thickness. 5. Right ventricular chamber dimension is normal. 6. Right ventricular systolic function is normal. 7. The pericardium appears epicardial fat pad. 8. There is no pericardial effusion. 9. Left atrial chamber dimension is moderately enlarged. 10. There is moderate tricuspid valve regurgitation. 11. Mild pulmonary hypertension, estimated pulmonary arterial systolic pressure is 38 mmHg. 12. There is mild aortic valve stenosis. Left Ventricle Left ventricular chamber dimension is normal. Left ventricular systolic function is normal, estimated at 60-65%. There is no increased left ventricular wall thickness. Left ventricular septal wall motion is normal. Right Ventricle Right ventricular chamber dimension is normal. Right ventricular systolic function is normal. Left Atria Left atrial chamber dimension is moderately enlarged. Right Atria Right atrial chamber dimension is normal. Aortic Valve The aortic valve is trileaflet. There is no aortic valve sclerosis. There is mild aortic valve stenosis. There is no aortic valve regurgitation. Pulmonic Valve The pulmonic valve is normal. There is no pulmonic valve stenosis. There is no pulmonic regurgitation. Mitral Valve The mitral valve has normal leaflets. There is no mitral valve stenosis. There is no mitral valve regurgitation. Tricuspid Valve The tricuspid valve leaflets are normal. There is no significant tricuspid valve stenosis. There is moderate tricuspid valve regurgitation. Mild pulmonary hypertension, estimated pulmonary arterial systolic pressure is 38 mmHg. Pericardium/Pleural The pericardium appears epicardial fat pad. There is no pericardial effusion. Inferior Vena Cava Normal inferior vena cava with >50% collapse upon inspiration consistent with normal right atrial pressure, 5 mmHg. Aorta The aortic root size at the sinus of Valsalva is normal. The prox ascending aorta size is normal. Left Ventricular Outflow Tract Name Value Normal LVOT 2D LVOT Diameter 2.1 cm LVOT Doppler LVOT Peak Gradient 3 mmHg LVOT Mean Gradient 2 mmHg LVOT VTI 14 cm LVOT VTI/AV VTI Ratio 0.[address]
--- NOTE | 2023-09-12 07:00 | ECG_ITS ---
Test Date: 2023-09-12 07:37:50 Measurements Intervals [place] Rate: 87 P: 0 [place]: 0 QRS: 8 QRSD: 130 T: -12 QT: 391 QTc: 471 Interpretive Statements ATRIAL FIBRILLATION VENTRICULAR PREMATURE COMPLEX RIGHT BUNDLE BRANCH BLOCK BASELINE ARTIFACT- I, III, AVL, V1 ABNORMAL ECG Compared to ECG 09/11/2023 14:22:22 NO SIGNIFICANT CHANGE Electronically Signed On 09-12-2023 07:49:24 CDT by Houston Langston D.O.
--- NOTE | 2023-09-12 07:48 | PM.IMPN ---
Progress Note: A&P Assessment and Plan (1) Pericarditis: Qualifiers: Chronicity: acute Pericarditis type: unspecified type Qualified Code(s): I30.9 - Acute pericarditis, unspecified Code(s): I31.9 - Disease of pericardium, unspecified Status: Acute (2) AMS (altered mental status): Qualifiers: Altered mental status type: unspecified Qualified Code(s): R41.82 - Altered mental status, unspecified Code(s): R41.82 - Altered mental status, unspecified Status: Acute (3) Lactic acidosis: Code(s): E87.20 - Acidosis, unspecified Status: Acute (4) CHF (congestive heart failure): Qualifiers: Heart failure chronicity: acute Heart failure type: unspecified Qualified Code(s): I50.9 - Heart failure, unspecified Code(s): I50.9 - Heart failure, unspecified Status: Acute (5) Pleural effusion: Code(s): J90 - Pleural effusion, not elsewhere classified Status: Acute (6) Hyponatremia: Code(s): E87.1 - Hypo-osmolality and hyponatremia Status: Acute (7) Diarrhea: Qualifiers: Diarrhea type: unspecified type Qualified Code(s): R19.7 - Diarrhea, unspecified Code(s): R19.7 - Diarrhea, unspecified Status: Acute (8) Atrial fibrillation, chronic: Code(s): I48.20 - Chronic atrial fibrillation, unspecified Status: Acute (9) Type 2 diabetes mellitus: Qualifiers: Diabetes mellitus complication detail: with cataract Diabetes mellitus complication status: with ophthalmic complications Diabetes mellitus long-term insulin use: without long-term use Qualified Code(s): 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 The patient is currently living at [facility]. History is taken from the patient and his son. Son reports they want to take him back home soon. For the past 2 weeks the patient has had loose stools brown in color. Son reports he is also had poor appetite and is likely dehydrated. The patient had been complaining of shortness of breath and a dry cough as well. On the morning of admission 09/11/2023 the patient was reported to be confused, he went to get breakfast early on 3 separate occasions. The patient reports he also had explosive watery diarrhea. No blood no black tarry stool. Patient arrived to [facility] via EMS, he was A&O x4 on arrival. Blood pressure 110/64. EKG demonstrating rate controlled AFib. White blood cell count 15.4, hemoglobin 12, platelets 134, sodium 129, serum creatinine 0.9, lactic acid 3.7 coming down to 1.9, CRP 23.7, BNP 3910, troponin negative x2, albumin 3.2. Urinalysis not indicative of infection. Quad viral screen negative. Head CT without intracranial abnormality, interval resolution of subdural hematoma. CT abdomen pelvis chest with contrast demonstrating small pericardial effusion with enhancement of the pericardium consistent with pericarditis. Denies chest pain. Moderate-sized left and moderate to large right posterior layering pleural effusions with dependent compressive atelectasis throughout both lungs most prominent at the lower lobes. No evidence of pulmonary edema or pneumonia in the aerated portion of the lungs. Sludge versus gallstones in the dependent gallbladder and small amount of pericholecystic fluid/edema in the fossa. Patient denies abdominal pain. Prostatomegaly. Nonspecific splenomegaly. # altered mental status -status: Acute, res
[2023-09-12 07:59] LABS: Glucose Point of Care 177 mg/dl (65-105)
[2023-09-12] MEDS: IBUPROFEN 400 MG TABLET 800 MG PO ×3 (08:55→16:21)
[2023-09-12] MEDS: levoFLOXacin 500 MG TABLET PO (08:55)
[2023-09-12] MEDS: levETIRAcetam 500 MG TABLET 1000 MG PO ×2 (08:55→20:48)
[2023-09-12] MEDS: AMIODARONE HCL 200 MG TABLET PO (08:55)
[2023-09-12] MEDS: PANTOPRAZOLE 40 MG TABLET PO (08:56)
[2023-09-12] MEDS: dilTIAZem HCL 30 MG TABLET PO ×2 (08:56→13:05)
[2023-09-12 12:35] LABS: Glucose Point of Care 216 mg/dl (65-105)
--- NOTE | 2023-09-12 12:58 | PM.CNCAR ---
Assessment and Plan Assessment and plan (1) Pericarditis: Qualifiers: Chronicity: acute Pericarditis type: unspecified type Qualified Code(s): I30.9 - Acute pericarditis, unspecified Code(s): I31.9 - Disease of pericardium, unspecified Status: Acute Plan No evidence of pericardial effusion by echocardiogram Bilateral pleural effusion and mild lower extremity edema possibly related to hypo albuminemia versus chronic diastolic heart failure Chronic AF rate controlled Mild aortic stenosis Mild Pulm HTN Hx of subdural hematoma Plan Cont amiodarone Cont Diltiazem Evaluation of LAAO as outpatient History of Present Illness History of Present Illness Consult date/time: 09/12/23 12:58 Reason For Visit: chf,pleural effusions,pericarditis,lactic acidosis Narrative: 82-year-old male patient at present is also altered mental status. Patient cannot give any history and information was obtained from the chart. Patient lives in senior care. For last 2 weeks patient has been complaining of poor appetite and loose stool. He was noted to have altered mental status admitted to the hospital for further evaluation and management. Who was noted to have atrial fibrillation with controlled ventricular response. CT head without acute abnormalities. CT scan of the chest showed small pericardial effusion and pleural effusion. Patient was sleeping when I entered the room and wake up. He denied any complaint. He does not recall any details regarding symptoms on presentation. He denied any chest pain or shortness of breath Review of Systems Review of Systems: All systems reviewed & are unremarkable except as noted in HPI and below PMFSH Past Medical History Medical History Chronic anticoagulation Chronic atrial fibrillation Hypertension Mixed hyperlipidemia Moderate aortic stenosis by prior echocardiogram Ocular hypertension, bilateral Seizures Signs and symptoms involving cognition Traumatic subdural hematoma (04/27/23) Treated nonsurgically and complicated by seizures and left hemiparesis. Type 2 diabetes mellitus Surgical History Surgical History History of bilateral tympanoplasty History of cataract extraction (2016) History of hernia repair (1978) History of inguinal hernia repair (1993) Family History Family History Mother Leukemia Father Malignant neoplasm of prostate Kidney failure Sibling Hypertension Sibling Malignant neoplasm of prostate Social History Social History Social History: Surrogate medical decision maker: Elisa Ortiz, daughter. Code status: Full code. Smoking status: Never smoker Second hand tobacco smoke exposure: No Alcohol intake: never Substance use: never Substance use type: does not use Do You Feel Safe in your Home?: Yes Lack of Transportation: No Lack of Food: Never True Current Housing: I Have Housing Concerned About Future Housing: No Difficulty Paying Gas/Electric Bills: No Difficulty Paying for Meds: No Currently Unemployed: No Education: Associate Degree Difficulty w/ Childcare or Family Care: No Living arrangements: alone Additional living arrangements comments: Lives alone and was independent of ADLs prior to subdural hematoma. 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 Spiritual care concerns: No Meds Home Medications and Allergies Home Medications Medication Instructions Recorded Confirmed Type amiodarone 200 mg tablet 200 mg PO DAILY 05/08/23 09/11/23 History diltiazem HCl 30 mg tablet 30 mg PO QID 05/08/23 09/11/23 History latanoprost 0.005 % eye drops 1 drp EACH EYE HS
[2023-09-12] MEDS: INSULIN ASPART (*BKC) 100 UNITS/ML SUB-Q (13:00)
[2023-09-12] MEDS: FUROSEMIDE INJ 40 MG/4 ML VIAL IV PUSH (13:05)
[2023-09-12 16:37] LABS: Glucose Point of Care 169 mg/dl (65-105)
[2023-09-12] MEDS: SIMVASTATIN 20 MG TABLET PO (20:48)
[2023-09-12] MEDS: LATANOPROST 0.005% OP SOLN 2.5 ML BTL 1 DROP EACH EYE (20:48)
[2023-09-12 21:04] LABS: Glucose Point of Care 184 mg/dl (65-105)
[2023-09-13] VITALS (10 sets, daily range): BP systolic 108–118; BP diastolic 55–60; PULSE 67–115; RESP 16–24; TEMP 36.3–37.3; O2SAT 94–98
[2023-09-13 05:19] LABS: Basophils Percent Auto 0.3 % (0.2-1.2); Eosinophils Absolute Auto 0.1 K/mm3 (0-0.3); Eosinophils Percent Auto 1.5 % (0-4.4); Hematocrit 34.5 % (42.0-52.0); Hemoglobin 11.6 g/dL (14.0-18.0); Immature Granulocyte Absolute 0.09 K/mm3 (0.00-0.031); Immature Platelet Fraction Pct 8.9 % (0.9-11.2); Lymphocytes Absolute Auto 0.86 K/mm3 (0.9-3.2); Lymphocytes Percent Auto 9.2 % (18.3-44.2); Mean Corpuscular HGB Conc 33.6 g/dl (32-36); Mean Corpuscular Hemoglobin 32.1 pg (26-34); Mean Corpuscular Volume 95.6 fl (80-100); Mean Platelet Volume 11.6 fl (7.4-10.4); Monocytes Absolute Auto 0.6 K/mm3 (0.1-0.6); Monocytes Percent Auto 6.2 % (2.6-8.5); Neutrophils Absolute Auto 7.6 K/mm3 (1.3-6.7); Neutrophils Percent Auto 81.8 % (45.5-73.1); Platelet Count Result 109 k/mm3 (150-375); Red Blood Count 3.61 M/mm3 (4.6-6.20); Red Cell Distribution Width 14.5 % (11.5-14.5); White Blood Count 9.3 K/mm3 (4.5-10.0)
[2023-09-13 05:35] LABS: Alanine Aminotransferase 25 U/L (6-50); Albumin Level 2.9 g/dL (3.5-5.1); Alkaline Phosphatase 121 U/L (38-126); Anion Gap 9 mmol/L (4-12); Aspartate Amino Transferase 30 U/L (17-59); Bilirubin,Total 0.9 mg/dL (0.2-1.3); Blood Urea Nitrogen 18 mg/dL (9-20); Calcium 7.9 mg/dL (8.4-10.2); Carbon Dioxide 32 mmol/L (22-30); Chloride 93 mmol/L (98-107); Estimated CRCL calculation 56 ml/min; Estimated Glomerular Filt Rate > 60; Glucose 173 mg/dL (65-110); Magnesium 1.8 mg/dL (1.6-2.3); Potassium 3.4 mmol/L (3.4-5.0); Sodium 134 mmol/L (137-145)
[2023-09-13 05:41] LABS: NT Pro B Type Natriuretic Pept 3420 pg/mL (19.9-100)
--- NOTE | 2023-09-13 07:26 | PM.IMPN ---
Progress Note: A&P Assessment and Plan (1) Pericarditis: Qualifiers: Chronicity: acute Pericarditis type: unspecified type Qualified Code(s): I30.9 - Acute pericarditis, unspecified Code(s): I31.9 - Disease of pericardium, unspecified Status: Acute (2) AMS (altered mental status): Qualifiers: Altered mental status type: unspecified Qualified Code(s): R41.82 - Altered mental status, unspecified Code(s): R41.82 - Altered mental status, unspecified Status: Acute (3) Lactic acidosis: Code(s): E87.20 - Acidosis, unspecified Status: Acute (4) CHF (congestive heart failure): Qualifiers: Heart failure chronicity: acute Heart failure type: unspecified Qualified Code(s): I50.9 - Heart failure, unspecified Code(s): I50.9 - Heart failure, unspecified Status: Acute (5) Pleural effusion: Code(s): J90 - Pleural effusion, not elsewhere classified Status: Acute (6) Hyponatremia: Code(s): E87.1 - Hypo-osmolality and hyponatremia Status: Acute (7) Diarrhea: Qualifiers: Diarrhea type: unspecified type Qualified Code(s): R19.7 - Diarrhea, unspecified Code(s): R19.7 - Diarrhea, unspecified Status: Acute (8) Atrial fibrillation, chronic: Code(s): I48.20 - Chronic atrial fibrillation, unspecified Status: Acute (9) Type 2 diabetes mellitus: Qualifiers: Diabetes mellitus complication detail: with cataract Diabetes mellitus complication status: with ophthalmic complications Diabetes mellitus usp insulin use: without usp use Qualified Code(s): 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 The patient is currently living at [facility]. History is taken from the patient and his son. Son reports they want to take him back home soon. For the past 2 weeks the patient has had loose stools brown in color. Son reports he is also had poor appetite and is likely dehydrated. The patient had been complaining of shortness of breath and a dry cough as well. On the morning of admission 09/11/2023 the patient was reported to be confused, he went to get breakfast early on 3 separate occasions. The patient reports he also had explosive watery diarrhea. No blood no black tarry stool. Patient arrived to [place] [facility] via EMS, he was A&O x4 on arrival. Blood pressure 110/64. EKG demonstrating rate controlled AFib. White blood cell count 15.4, hemoglobin 12, platelets 134, sodium 129, serum creatinine 0.9, lactic acid 3.7 coming down to 1.9, CRP 23.7, BNP 3910, troponin negative x2, albumin 3.2. Urinalysis not indicative of infection. Quad viral screen negative. Head CT without intracranial abnormality, interval resolution of subdural hematoma. CT abdomen pelvis chest with contrast demonstrating small pericardial effusion with enhancement of the pericardium consistent with pericarditis. Denies chest pain. Moderate-sized left and moderate to large right posterior layering pleural effusions with dependent compressive atelectasis throughout both lungs most prominent at the lower lobes. No evidence of pulmonary edema or pneumonia in the aerated portion of the lungs. Sludge versus gallstones in the dependent gallbladder and small amount of pericholecystic fluid/edema in the fossa. Patient denies abdominal pain. Prostatomegaly. Nonspecific splenomegaly. # altered mental status -status: Acute, res
[2023-09-13 08:03] LABS: Glucose Point of Care 177 mg/dl (65-105)
[2023-09-13] MEDS: PANTOPRAZOLE 40 MG TABLET PO (09:05)
[2023-09-13] MEDS: AMIODARONE HCL 200 MG TABLET PO (09:05)
[2023-09-13] MEDS: levoFLOXacin 500 MG TABLET PO (09:05)
[2023-09-13] MEDS: POTASSIUM CHLORIDE 20 MEQ ER TABLET 40 MEQ PO (09:07)
[2023-09-13] MEDS: levETIRAcetam 500 MG TABLET 1000 MG PO ×2 (09:07→20:42)
[2023-09-13 12:16] LABS: Glucose Point of Care 331 mg/dl (65-105)
[2023-09-13] MEDS: INSULIN ASPART (*BKC) 100 UNITS/ML SUB-Q ×2 (12:54→17:30)
[2023-09-13] MEDS: FUROSEMIDE INJ 40 MG/4 ML VIAL IV PUSH (12:55)
[2023-09-13 16:51] LABS: Glucose Point of Care 251 mg/dl (65-105)
[2023-09-13] MEDS: SIMVASTATIN 20 MG TABLET PO (20:42)
[2023-09-13] MEDS: LATANOPROST 0.005% OP SOLN 2.5 ML BTL 1 DROP EACH EYE (20:42)
[2023-09-13 20:50] LABS: Glucose Point of Care 200 mg/dl (65-105)
[2023-09-14] VITALS (10 sets, daily range): BP systolic 100–117; BP diastolic 62–71; PULSE 75–87; RESP 16–18; TEMP 36.3–36.8; O2SAT 95–96
[2023-09-14 05:16] LABS: Basophils Percent Auto 0.3 % (0.2-1.2); Eosinophils Absolute Auto 0.1 K/mm3 (0-0.3); Eosinophils Percent Auto 1.7 % (0-4.4); Hematocrit 32.5 % (42.0-52.0); Hemoglobin 10.8 g/dL (14.0-18.0); Immature Granulocyte Absolute 0.05 K/mm3 (0.00-0.031); Immature Granulocyte Percent A 0.7 % (0-0.5); Immature Platelet Fraction Pct 8.3 % (0.9-11.2); Lymphocytes Absolute Auto 0.99 K/mm3 (0.9-3.2); Lymphocytes Percent Auto 14.1 % (18.3-44.2); Mean Corpuscular HGB Conc 33.2 g/dl (32-36); Mean Corpuscular Hemoglobin 31.6 pg (26-34); Mean Platelet Volume 10.7 fl (7.4-10.4); Monocytes Absolute Auto 0.4 K/mm3 (0.1-0.6); Monocytes Percent Auto 5.5 % (2.6-8.5); Neutrophils Absolute Auto 5.5 K/mm3 (1.3-6.7); Neutrophils Percent Auto 77.7 % (45.5-73.1); Platelet Count Result 121 k/mm3 (150-375); Red Blood Count 3.42 M/mm3 (4.6-6.20); Red Cell Distribution Width 14.6 % (11.5-14.5)
[2023-09-14 05:31] LABS: Alanine Aminotransferase 27 U/L (6-50); Albumin Level 2.8 g/dL (3.5-5.1); Alkaline Phosphatase 121 U/L (38-126); Anion Gap 7 mmol/L (4-12); Aspartate Amino Transferase 32 U/L (17-59); Bilirubin,Total 0.7 mg/dL (0.2-1.3); Blood Urea Nitrogen 14 mg/dL (9-20); Calcium 7.8 mg/dL (8.4-10.2); Carbon Dioxide 30 mmol/L (22-30); Chloride 95 mmol/L (98-107); Estimated CRCL calculation 62 ml/min; Estimated Glomerular Filt Rate > 60; Glucose 194 mg/dL (65-110); Magnesium 1.7 mg/dL (1.6-2.3); Potassium 3.3 mmol/L (3.4-5.0); Sodium 132 mmol/L (137-145)
--- NOTE | 2023-09-14 07:07 | P.PNIM_ITS ---
Progress Note: A&P Assessment and Plan (1) Pericarditis: Qualifiers: Chronicity: acute Pericarditis type: unspecified type Qualified Code(s): I30.9 - Acute pericarditis, unspecified Code(s): I31.9 - Disease of pericardium, unspecified Status: Acute (2) AMS (altered mental status): Qualifiers: Altered mental status type: unspecified Qualified Code(s): R41.82 - Altered mental status, unspecified Code(s): R41.82 - Altered mental status, unspecified Status: Acute (3) Lactic acidosis: Code(s): E87.20 - Acidosis, unspecified Status: Acute (4) CHF (congestive heart failure): Qualifiers: Heart failure chronicity: acute Heart failure type: unspecified Qualified Code(s): I50.9 - Heart failure, unspecified Code(s): I50.9 - Heart failure, unspecified Status: Acute (5) Pleural effusion: Code(s): J90 - Pleural effusion, not elsewhere classified Status: Acute (6) Hyponatremia: Code(s): E87.1 - Hypo-osmolality and hyponatremia Status: Acute (7) Diarrhea: Qualifiers: Diarrhea type: unspecified type Qualified Code(s): R19.7 - Diarrhea, unspecified Code(s): R19.7 - Diarrhea, unspecified Status: Acute (8) Atrial fibrillation, chronic: Code(s): I48.20 - Chronic atrial fibrillation, unspecified Status: Acute (9) Type 2 diabetes mellitus: Qualifiers: Diabetes mellitus complication detail: with cataract Diabetes mellitus complication status: with ophthalmic complications Diabetes mellitus intermediate insulin use: without intermediate use Qualified Code(s): 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 The patient is currently living at [facility]. History is taken from the patient and his son. Son reports they want to take him back home soon. For the past 2 weeks the patient has had loose stools brown in color. Son reports he is also had poor appetite and is likely dehydrated. The patient had been complaining of shortness of breath and a dry cough as well. On the morning of admission 09/11/2023 the patient was reported to be confused, he went to get breakfast early on 3 separate occasions. The patient reports he also had explosive watery diarrhea. No blood no black tarry stool. Patient arrived to [place] [facility] via EMS, he was A&O x4 on arrival. Blood pressure 110/64. EKG demonstrating rate controlled AFib. White blood cell count 15.4, hemoglobin 12, platelets 134, sodium 129, serum creatinine 0.9, lactic acid 3.7 coming down to 1.9, CRP 23.7, BNP 3910, troponin negative x2, albumin 3.2. Urinalysis not indicative of infection. Quad viral screen negative. Head CT without intracranial abnormality, interval resolution of subdural hematoma. CT abdomen pelvis chest with contrast demonstrating small pericardial effusion with enhancement of the pericardium consistent with pericarditis. Denies chest pain. Moderate-sized left and moderate to large right posterior layering pleural effusions with dependent compressive atelectasis throughout both lungs most prominent at the lower lobes. No evidence of
[2023-09-14 07:58] LABS: Glucose Point of Care 203 mg/dl (65-105)
--- NOTE | 2023-09-14 08:10 | PCPTNOTE ---
Patient refused treatment this session. Patient did not give reason why. Educated patient on the importance of therapy and getting out of bed, patent continued to refuse.
[2023-09-14] MEDS: POTASSIUM CHLORIDE 20 MEQ PACKET (FOR LIQUID) 40 MEQ PO (09:07)
[2023-09-14] MEDS: AMIODARONE HCL 200 MG TABLET PO (09:07)
[2023-09-14] MEDS: levoFLOXacin 500 MG TABLET PO (09:07)
[2023-09-14] MEDS: levETIRAcetam 500 MG TABLET 1000 MG PO (09:08)
[2023-09-14] MEDS: INSULIN ASPART (*BKC) 100 UNITS/ML SUB-Q ×3 (09:08→21:12)
[2023-09-14] MEDS: PANTOPRAZOLE 40 MG TABLET PO (09:08)
[2023-09-14 12:06] LABS: Glucose Point of Care 185 mg/dl (65-105)
[2023-09-14 16:54] LABS: Glucose Point of Care 213 mg/dl (65-105)
[2023-09-14] MEDS: LATANOPROST 0.005% OP SOLN 2.5 ML BTL 1 DROP EACH EYE (21:00)
[2023-09-14] MEDS: SIMVASTATIN 20 MG TABLET PO (21:00)
[2023-09-15] VITALS (8 sets, daily range): BP systolic 111–117; BP diastolic 60–74; PULSE 74–86; RESP 16–18; TEMP 36.4–36.9; O2SAT 97
[2023-09-15 00:17] LABS: Glucose Point of Care 225 mg/dl (65-105)
[2023-09-15 05:04] LABS: Basophils Percent Auto 0.5 % (0.2-1.2); Eosinophils Absolute Auto 0.1 K/mm3 (0-0.3); Eosinophils Percent Auto 2.5 % (0-4.4); Hematocrit 32.4 % (42.0-52.0); Hemoglobin 10.7 g/dL (14.0-18.0); Immature Granulocyte Absolute 0.04 K/mm3 (0.00-0.031); Immature Granulocyte Percent A 0.7 % (0-0.5); Lymphocytes Absolute Auto 1.14 K/mm3 (0.9-3.2); Lymphocytes Percent Auto 20.1 % (18.3-44.2); Mean Corpuscular Hemoglobin 31.4 pg (26-34); Mean Platelet Volume 11.4 fl (7.4-10.4); Monocytes Absolute Auto 0.3 K/mm3 (0.1-0.6); Monocytes Percent Auto 5.8 % (2.6-8.5); Neutrophils Percent Auto 70.4 % (45.5-73.1); Platelet Count Result 132 k/mm3 (150-375); Red Blood Count 3.41 M/mm3 (4.6-6.20); Red Cell Distribution Width 14.4 % (11.5-14.5); White Blood Count 5.7 K/mm3 (4.5-10.0)
[2023-09-15 05:16] LABS: Alanine Aminotransferase 30 U/L (6-50); Albumin Level 2.7 g/dL (3.5-5.1); Alkaline Phosphatase 113 U/L (38-126); Anion Gap 7 mmol/L (4-12); Aspartate Amino Transferase 32 U/L (17-59); Bilirubin,Total 0.5 mg/dL (0.2-1.3); Blood Urea Nitrogen 13 mg/dL (9-20); Calcium 8.1 mg/dL (8.4-10.2); Carbon Dioxide 29 mmol/L (22-30); Chloride 97 mmol/L (98-107); Estimated CRCL calculation 70 ml/min; Estimated Glomerular Filt Rate > 60; Glucose 189 mg/dL (65-110); Magnesium 1.8 mg/dL (1.6-2.3); Potassium 3.9 mmol/L (3.4-5.0); Sodium 133 mmol/L (137-145)
[2023-09-15 08:11] LABS: Glucose Point of Care 197 mg/dl (65-105)
[2023-09-15] MEDS: AMIODARONE HCL 200 MG TABLET PO (08:33)
[2023-09-15] MEDS: FUROSEMIDE 40 MG TABLET PO (08:33)
[2023-09-15] MEDS: PANTOPRAZOLE 40 MG TABLET PO (08:34)
[2023-09-15] MEDS: levETIRAcetam 500 MG TABLET 1000 MG PO (08:34)
[2023-09-15] MEDS: levoFLOXacin 500 MG TABLET PO (08:34)
[2023-09-15 11:46] LABS: Glucose Point of Care 226 mg/dl (65-105)
[2023-09-15] MEDS: INSULIN ASPART (*BKC) 100 UNITS/ML SUB-Q (12:21)
--- NOTE | 2023-09-15 13:01 | PM.DS ---
DS: Admitting Diagnosis Discharge Date 09/14 Admitting Diagnosis confusion, diarrhea, weakness DS: Discharge Diagnosis Discharge Diagnosis (1) Pericarditis: Qualifiers: Chronicity: acute Pericarditis type: unspecified type Qualified Code(s): I30.9 - Acute pericarditis, unspecified Code(s): I31.9 - Disease of pericardium, unspecified Status: Acute (2) AMS (altered mental status): Qualifiers: Altered mental status type: unspecified Qualified Code(s): R41.82 - Altered mental status, unspecified Code(s): R41.82 - Altered mental status, unspecified Status: Acute (3) Lactic acidosis: Code(s): E87.20 - Acidosis, unspecified Status: Acute (4) CHF (congestive heart failure): Qualifiers: Heart failure chronicity: acute Heart failure type: unspecified Qualified Code(s): I50.9 - Heart failure, unspecified Code(s): I50.9 - Heart failure, unspecified Status: Acute (5) Pleural effusion: Code(s): J90 - Pleural effusion, not elsewhere classified Status: Acute (6) Hyponatremia: Code(s): E87.1 - Hypo-osmolality and hyponatremia Status: Acute (7) Diarrhea: Qualifiers: Diarrhea type: unspecified type Qualified Code(s): R19.7 - Diarrhea, unspecified Code(s): R19.7 - Diarrhea, unspecified Status: Acute (8) Atrial fibrillation, chronic: Code(s): I48.20 - Chronic atrial fibrillation, unspecified Status: Acute (9) Type 2 diabetes mellitus: Qualifiers: Diabetes mellitus moth exterminator insulin use: without moth exterminator use Diabetes mellitus complication status: with ophthalmic complications Diabetes mellitus complication detail: with cataract Qualified Code(s): 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 The patient is currently living at [facility]. History is taken from the patient and his son. Son reports they want to take him back home soon. For the past 2 weeks the patient has had loose stools brown in color. Son reports he is also had poor appetite and is likely dehydrated. The patient had been complaining of shortness of breath and a dry cough as well. On the morning of admission 09/11/2023 the patient was reported to be confused, he went to get breakfast early on 3 separate occasions. The patient reports he also had explosive watery diarrhea. No blood no black tarry stool. Patient arrived to [place] [facility] via EMS, he was A&O x4 on arrival. Blood pressure 110/64. EKG demonstrating rate controlled AFib. White blood cell count 15.4, hemoglobin 12, platelets 134, sodium 129, serum creatinine 0.9, lactic acid 3.7 coming down to 1.9, CRP 23.7, BNP 3910, troponin negative x2, albumin 3.2. Urinalysis not indicative of infection. Quad viral screen negative. Head CT without intracranial abnormality, interval resolution of subdural hematoma. CT abdomen pelvis chest with contrast demonstrating small pericardial effusion with enhancement of the pericardium consistent with pericarditis. Denies chest pain. Moderate-sized left and moderate to large right posterior layering pleural effusions with dependent compressive atelectasis throughout both lungs most prominent at the lower lobes. No evidence of pulmonary edema or pneumonia in the aerated portion of the lungs. Sludge versus gallstones in the dependent gallbladder and small amount of pericholecystic fluid/edema in the fossa. Patient denies a
[2023-09-15 16:33] LABS: SARS-CoV-2 RNA PCR Negative (Negative)
[2023-09-15 16:56] LABS: Glucose Point of Care 180 mg/dl (65-105)
== END 2023-09-15 17:35 | DRG 872 ==
LOC: ANHED 13:43 → ANH2MED 15:18
PROVIDERS: Emergency Medicine; Admitting Provider General Practice; Emergency Provider Physician Assistant; Visit Provider Nurse Practitioner Acute Care
DX: A41.9 Sepsis, unspecified organism (principal); I30.9 Acute pericarditis, unspecified; E87.1 Hypo-osmolality and hyponatremia; I48.20 Chronic atrial fibrillation, unspecified; I50.32 Chronic diastolic (congestive) heart failure; I11.0 Hypertensive heart disease with heart failure; E11.9 Type 2 diabetes mellitus without complications; E78.5 Hyperlipidemia, unspecified; E86.0 Dehydration; E83.42 Hypomagnesemia; G40.909 Epilepsy, unspecified, not intractable, without status epilepticus; I35.0 Nonrheumatic aortic (valve) stenosis; R41.0 Disorientation, unspecified; R19.7 Diarrhea, unspecified; Z79.84 Long term (current) use of oral hypoglycemic drugs; Z20.822 Contact with and (suspected) exposure to COVID-19; Z11.52 Encounter for screening for COVID-19
CPT/HCPCS: 36415; 70450; 71045; 71046; 71260; 74177; 80053; 81001; 82948; 83605; 83735; 83880; 84145; 84484; 85025; 85055; 85610; 85652; 85730; 86140; 87040; 87635; 87637; 93005; 93306; 96365; 96375; 97110; 97161; 97530; 97535; 99285; A9270; G0378; J1815; J1940; J3475; J7030; Q9967